=== PATIENT | male | born 1945 | race American Indian/Alaskan Native ===

== ENCOUNTER 2016-11-23 21:54 | Inpatient (IN) | payer MEDICARE ==
[2016-11-23 22:11] LABS: Basophils % (Auto) 0.1 % (0.0-1.8); Eosinophils % (Auto) 0.1 % (0.0-4.3); Hematocrit 47.4 % (35.5-45.6); Hemoglobin 16.3 gm/dl (11.8-15.2); Mean Corpuscular HGB Conc 35 % (32-34); Mean Corpuscular Hemoglobin 30 pg (28-32); Mean Corpuscular Volume 88 fl (84-94); Platelet Count 206 K/mm3 (140-440); Red Blood Count 5.37 M/mm3 (3.65-5.03); White Blood Count 17.7 K/mm3 (4.5-11.0)
[2016-11-23 22:15] LABS: INR 1.07 (0.87-1.13)
[2016-11-23 22:16] LABS: Partial Thromboplastin Time 33.2 Sec. (24.2-36.6)
[2016-11-23 22:19] LABS: Anion Gap 19 mmol/L; BUN/Creatinine Ratio 12.66; Blood Urea Nitrogen 19 mg/dL (9-20); Calcium 9.1 mg/dL (8.4-10.2); Carbon Dioxide 26 mmol/L (22-30); Glucose 190 mg/dL (75-100); Potassium 3.4 mmol/L (3.6-5.0); Sodium 137 mmol/L (137-145)
--- NOTE | 2016-11-23 22:37 | Cat Scan Report ---
FINAL REPORT EXAM: CT HEAD/BRAIN WO CON HISTORY: neuro deficits \T\lt; 6hrs or sx present upon awakening TECHNIQUE: CT head without contrast PRIORS: None. FINDINGS: There is a 0.7 centimeter low-density cyst located within the johny to the left of midline consistent with a remote infarct. There are confluent patchy hypodensity throughout the supratentorial white matter consistent with chronic small vessel ischemic change. There is mild generalized age-related prominence of ventricles and sulci. No acute intra or extra-axial hemorrhage is identified. No evidence for midline shift or mass effect. Bony calvarium is intact. Visualized portion of the paranasal sinuses are unremarkable. IMPRESSION: Remote pontine infarct Chronic small vessel white matter ischemic changes No acute abnormality identified.
--- NOTE | 2016-11-23 22:38 | Emergency Department Report ---
HPI - General Chief Complaint: Neuro Symptoms/Deficit Time Seen by Provider: 11/23/16 22:15 - HPI HPI: Room 1 The patient is a 71-year-old male presenting with a chief complaint of slurred speech and weakness. The patient reportedly was in his usual state of health at 05:00 this morning when the patient's went to work. The patient states she returned home at approximate 14:00 and the patient was eating but she did not notice anything out of the ordinary. At approximately 19:40 she asked the daughter to bring the patient to eat. Family states they noticed that the patient was slow moving and had difficulty lifting his legs. The patient's speech was slightly slurred and after wanted teaspoonfuls patient began vomiting so they called EMS. The patient currently denies complaints family states the patient appears to be back to his baseline. The patient has been compliant with Plavix and aspirin Location: [see above] Duration: [see above] Quality: [see above] Severity: [see above] Modifying factors: [see above] Context: [see above] Mode of transportation: [not driving] ED Past Medical Hx - Past Medical History Hx Hypertension: Yes Hx CVA: Yes (December 2014) Hx Diabetes: Yes - Surgical History Past Surgical History?: No - Family History Family history: no significant - Social History Smoking Status: Never Smoker Substance Use Type: None ED Review of Systems ROS: Stated complaint: STROKE Other details as noted in HPI Comment: All other systems reviewed and negative Constitutional: denies: chills, fever Eyes: denies: eye pain, eye discharge, vision change ENT: denies: ear pain, throat pain Respiratory: denies: cough, shortness of breath, wheezing Cardiovascular: denies: chest pain, palpitations Endocrine: no symptoms reported Gastrointestinal: denies: abdominal pain, nausea, diarrhea Genitourinary: denies: urgency, dysuria Musculoskeletal: denies: back pain, joint swelling, arthralgia Skin: denies: rash, lesions Neurological: weakness, other (dysarthria) Psychiatric: denies: anxiety, depression Hematological/Lymphatic: denies: easy bleeding, easy bruising Physical Exam - Physical Exam Physical Exam: GENERAL: The patient is well-developed well-nourished male lying on stretcher not appearing to be in acute distress. [] HEENT: Normocephalic. Atraumatic. Extraocular motions are intact. Patient has moist mucous membranes. NECK: Supple. No meningitic signs are noted. There is no adenopathy noted. CHEST/LUNGS: Clear to auscultation. There is no respiratory distress noted. HEART/CARDIOVASCULAR: Regular. There is no tachycardia. There is no gallop rub or murmur. ABDOMEN: Abdomen is soft, nontender. Patient has normal bowel sounds. There is no abdominal distention. SKIN: There is no rash. There is no edema. There is no diaphoresis. NEURO: The patient is awake, alert, and oriented. The patient is cooperative. Cranial nerves II through XII grossly intact with exception of asymmetric small slight right facial droop which states is his baseline since his CVA in December 2014. The patient has normal speech. Moves all extremities well. Sensation throughout MUSCULOSKELETAL: There is no evidence of acute injury. ED Course - Consultations Consultation #1: 11/23/16 22:39 Neurology paged 11/23/16 22:47 Case discussed with neurologist Dr. Iyer- no indication for TPA at this time. Recommend admission for TIA workup ED Medical Decision Making - Lab Data Result diagrams: 11/23/16 21:50 11/23/16 21:50 Laboratory Tests 11/23/16 11/23/16 11/23/16 21:50 21:50 21:50 WBC 17.7 H RBC 5.37 H Hgb 16.3 H Hct 47.4 H MCV 88 MCH 30 MCHC 35 H RDW 14.0 Plt Count 206 Lymph % (Auto) 7.5 L [place] % (Auto) 7.8 H Eos % (Auto) 0.1 Baso % (Auto) 0.1 Lymph # 1.3 [place] # 1.4 H Eos # 0.0 Baso # 0.0 Seg Neutrophils % 84.5 H Seg Neutrophils # 15.0 H PT 13.8 INR 1.07 APTT 33.2 Thrombin Time Sodium 137 Potassium 3.4 L Chloride 95.0 L Carbon Dioxide 26 Anion Gap 19 BUN 19 Creatinine 1.5 Estimated GFR 46 BUN/Creatinine Ratio 12.66 Glucose 190 H Calcium 9.1 Troponin T < 0.010 11/23/16 21:50 WBC RBC Hgb Hct MCV MCH MCHC RDW Plt Count Lymph % (Auto) [place] % (Auto) Eos % (Auto) Baso % (Auto) Lymph # [place] # Eos # Baso # Seg Neutrophils % Seg Neutrophils # PT INR APTT Thrombin Time 15.2 Sodium Potassium Chloride Carbon Dioxide Anion Gap BUN Creatinine Estimated GFR BUN/Creatinine Ratio Glucose Calcium Troponin T - EKG Data -: EKG Interpreted by Me EKG shows normal: sinus rhythm Rate: normal - EKG Data When compared to previous EKG there are: previous EKG unavailable - Radiology Data Radiology results: report reviewed (CT head), image reviewed (CT head) CT head (read by radiologist)-no acute disease found - Differential Diagnosis CVA, TIA Critical care attestation.: If time is entered above; I have spent that time in minutes in the direct care of this critically ill patient, excluding procedure time. ED Disposition Clinical Impression: TIA (transient ischemic attack) Disposition: DC-09 OP ADMIT IP TO THIS HOSP Is pt being admited?: Yes Does the pt Need Aspirin: Yes Condition: Fair Time of Disposition: 22:49 (hospitalist paged)
[2016-11-23] MEDS ORDERED: ASPIRIN PO ONE (22:49)
[2016-11-23] MEDS ORDERED: SODIUM CHLORIDE FLUSH SYRINGE 10 ML IV PRN (23:51)
[2016-11-23] MEDS ORDERED: TYLENOL PO PRN (23:51)
[2016-11-23] MEDS ORDERED: MILK OF MAGNESIA PO PRN (23:51)
[2016-11-23] MEDS ORDERED: DULCOLAX PR PRN (23:51)
--- NOTE | 2016-11-23 23:51 | History and Physical Report ---
History of Present Illness Date of examination: 11/23/16 History of present illness: This is a 71-year-old man with a history of hypertension, diabetes, CVA with right-sided weakness comes emergency room today because he felt that his right side was weaker than normal. state that he had nausea and vomiting shortly after dinner Review of systems Constitutional: no fever, no chills, no weight loss Ears, eyes, nose, mouth and throat: no nasal congestion, no nasal discharge, no sinus pressure, no vision change, no red eye. Neck: No neck pain or rigidity. Cardiovascular: chest pain, no orthopnea, no palpitations, no leg swelling Respiratory: No shortness of breath, no cough, no congestion, no wheezing Gastrointestinal: abdominal pain, hematochezia, no nausea, no vomiting Genitourinary : no dysuria, frequency , no hematuria Musculoskeletal: no joint swelling or muscle ache Integumentary: no rash, no pruritis Neurological: no parathesias, change in speech Endocrine: no cold or heat intolerance, no polyuria or polydipsia Hematologic/Lymphatic: no easy bruising, no easy bleeding, no gland swelling Allergic/Immunologic: no urticaria, no angioedema. PAST MEDICAL HISTORY: hypertension, diabetes, CVA PAST SURGICAL HISTORY : None FAMILY HISTORY:Hypertension SOCIAL HISTORY: Denies alcohol, tobacco, drugs Medications and Allergies Allergies Allergy/AdvReac Type Severity Reaction Status Date / Time No Known Allergies Allergy Verified 11/23/16 22:00 Home Medications Medication Instructions Recorded Confirmed Last Taken Type Clonidine 0.1 mg PO DAILY 11/23/16 11/23/16 Unknown History Clopidogrel 75 mg PO DAILY 11/23/16 11/23/16 Unknown History Hydrochlorothiazide 25 mg PO QAM 11/23/16 11/23/16 Unknown History K-Dur 20 mg PO DAILY 11/23/16 11/23/16 Unknown History Levemir Flextouch 30 units SC QAM 11/23/16 11/23/16 Unknown History Lisinopril 40 mg PO QAM 11/23/16 11/23/16 Unknown History Metoprolol Tartrate 50 mg PO QAM 11/23/16 11/23/16 Unknown History NovoLIN 70/30 20 units SC QAM 11/23/16 11/23/16 Unknown History Simvastatin 20 mg PO DAILY 11/23/16 11/23/16 Unknown History Exam - Physical Exam Narrative exam: Gen. appearance: Patient lying in bed, no apparent distress HEENT: Normocephalic, atraumatic, pupils equally round and reactive to light, extraocular movement intact, and no sclericterus,. No JVD or thyromegaly or nodule,neck supple, no carotid bruit ,mucous membranes moist, no exudate or erythema Heart: S1, S2, regular rate and rhythm Lungs: Clear to auscultation bilaterally, breathing comfortable Abdomen: Positive bowel sounds, nontender, nondistended, no organomegaly Extremity: No edema, cyanosis, clubbing Skin: No rash, nodules, warm, dry Neuro: Oriented 3, cranial nerves II-12 intact, speech is fluent, motor - Right side 3/5 and sensory intact - Constitutional Vitals: Temp Pulse Resp BP Pulse Ox 102.6 F H 89 19 169/85 97 11/23/16 22:46 11/23/16 23:11 11/23/16 23:11 11/23/16 23:11 11/23/16 23:11 Results - Labs CBC & Chem 7: 11/23/16 21:50 11/23/16 21:50 Labs: Abnormal lab results 11/23/16 11/23/16 Range/Units 21:50 21:50 WBC 17.7 H (4.5-11.0) K/mm3 RBC 5.37 H (3.65-5.03) M/mm3 Hgb 16.3 H (11.8-15.2) gm/dl Hct 47.4 H (35.5-45.6) % MCHC 35 H (32-34) % Lymph % (Auto) 7.5 L (13.4-35.0) % [place] % (Auto) 7.8 H (0.0-7.3) % [place] # 1.4 H (0.0-0.8) K/mm3 Seg Neutrophils % 84.5 H (40.0-70.0) % Seg Neutrophils # 15.0 H (1.8-7.7) K/mm3 Potassium 3.4 L (3.6-5.0) mmol/L Chloride 95.0 L (98-107) mmol/L Glucose 190 H (75-100) mg/dL - Imaging and Cardiology EKG: image reviewed CT Scan - head: report reviewed Assessment and Plan Assessment Acute CVA SIRS Hypertension Diabetes Plan Admit to medicine Do neurochecks, sunscreen Start plavix, statin, IV hydralazine for blood pressure control Obtain MRI of the head, echo, carotid Doppler Consult neurology, physical and occupational therapy Obtain blood culture, urine culture, chest x-ray, start IV Levaquin Start DVT prophylaxis
[2016-11-24 01:05] LABS: Creatine Kinase MB 1.9 ng/mL (0.0-4.0)
[2016-11-24 01:08] LABS: Creatine Kinase 245 units/L (55-170)
[2016-11-24 01:34] LABS: Bilirubin,Urine NEG (Negative); Blood,Urine MOD (Negative); Ketones,Urine NEG (Negative); Leukocyte Esterase,Urine SM (Negative); Nitrite,Urine NEG (Negative); Urobilinogen,Urine < 2.0 mg/dL (<2.0)
[2016-11-24] MEDS ORDERED: LEVAQUIN 750MG/150ML 750 MG/150 ML BAG IV SCH (01:52)
[2016-11-24] MEDS ORDERED: D50W (25GM) IV PRN (02:51)
[2016-11-24] MEDS: APRESOLINE IV PRN (03:35)
[2016-11-24] MEDS: ZOFRAN IV PRN (05:54)
[2016-11-24 07:03] LABS: Creatine Kinase 228 units/L (55-170); Creatine Kinase MB 1.7 ng/mL (0.0-4.0)
[2016-11-24] MEDS: NOVOLOG SUB-Q SCH ×4 (08:03→22:47)
[2016-11-24] MEDS ORDERED: ASPIRIN PO SCH (10:00)
[2016-11-24] MEDS ORDERED: LOVENOX SUB-Q SCH (10:00)
--- NOTE | 2016-11-24 10:04 | XRay Report ---
AP CHEST: HISTORY: Fever AP view of the chest demonstrates a normal mediastinal and cardiac contour with clear lungs and normal bony and soft tissue structures. IMPRESSION: Unremarkable AP chest.
[2016-11-24] MEDS: PLAVIX PO SCH (12:07)
--- NOTE | 2016-11-24 16:33 | Magnetic Resonance Report ---
FINAL REPORT EXAM: MR BRAIN WO CON HISTORY: stroke TECHNIQUE: MRI brain without contrast PRIORS: Correlated to prior CT head November 23, 2016 FINDINGS: there is focal signal abnormality within the left johny demonstrating increased signal on T2 weighted sequence and decreased signal on T1 weighted sequence. Findings are consistent with a remote left pontine infarct. Increased T2 signal is noted within the supratentorial white matter consistent with chronic small vessel white matter ischemic changes no acute diffusion restriction is identified No evidence for acute intra or extra-axial hemorrhage. Ventricles and sulci are within normal limits. No evidence for mass effect or brain edema pattern. IMPRESSION: Remote left pontine infarct Chronic small vessel white matter ischemic change
--- NOTE | 2016-11-24 17:59 | Progress Note ---
Assessment and Plan Assessment and Plan Assessment Acute CVA SIRS Hypertension Diabetes Plan Admit to medicine Do neurochecks, sunscreen Start plavix, statin, IV hydralazine for blood pressure control Obtain MRI of the head, echo, carotid Doppler Consult neurology, physical and occupational therapy Obtain blood culture, urine culture, chest x-ray, start IV Levaquin Start DVT prophylaxis MRI Remote L Pontine infarct Chronic small vessel white matter ischemic change Subjective Date of service: 11/24/16 Principal diagnosis: Acute CVA Interval history: Improved dramatically Objective - Exam Narrative Exam: Eating by himself - Constitutional Vitals: Vital Signs - 12hr 11/24/16 11/24/16 11/24/16 08:28 08:30 10:00 Temperature 98.7 F Pulse Rate 110 H Respiratory 22 Rate Blood Pressure 130/72 O2 Sat by Pulse 95 98 97 Oximetry 11/24/16 14:00 Temperature 100.0 F H Pulse Rate 96 H Respiratory 20 Rate Blood Pressure 140/76 O2 Sat by Pulse 99 Oximetry General appearance: Present: no acute distress, well-nourished - EENT Eyes: PERRL, EOM intact ENT: hearing intact, clear oral mucosa Ears: bilateral: normal - Neck Neck: supple, normal ROM - Respiratory Respiratory effort: normal Respiratory: bilateral: CTA - Breasts Breasts: normal - Cardiovascular Rhythm: regular Heart Sounds: Present: S1 & S2. Absent: gallop, rub Extremities: pulses intact, No edema, normal color, Full ROM - Gastrointestinal General gastrointestinal: Present: soft, non-tender, non-distended, normal bowel sounds - Genitourinary Male genitourinary: normal - Integumentary Integumentary: clear, warm, dry - Musculoskeletal Musculoskeletal: 1, strength equal bilaterally - Neurologic Neurologic: moves all extremities - Psychiatric Psychiatric: memory intact, appropriate mood/affect, intact judgment & insight - Labs CBC & Chem 7: 11/25/16 05:51 11/25/16 05:51 Labs: Abnormal lab results 11/24/16 11/24/16 11/24/16 Range/Units 00:17 00:44 03:49 POC Glucose (70-105) Total Creatine Kinase 245 H (55-170) units/L HDL Cholesterol 64 H (40-59) mg/dL Urine WBC (Auto) 16.0 H (0.0-6.0) /HPF 11/24/16 11/24/16 11/24/16 Range/Units 04:07 05:54 13:51 POC Glucose 196 H 196 H (70-105) Total Creatine Kinase 228 H (55-170) units/L HDL Cholesterol (40-59) mg/dL Urine WBC (Auto) (0.0-6.0) /HPF 11/24/16 Range/Units 16:38 POC Glucose 164 H (70-105) Total Creatine Kinase (55-170) units/L HDL Cholesterol (40-59) mg/dL Urine WBC (Auto) (0.0-6.0) /HPF
[2016-11-24] MEDS: ZOCOR PO SCH (21:51)
[2016-11-25 06:34] LABS: Hematocrit 43.3 % (35.5-45.6); Hemoglobin 14.9 gm/dl (11.8-15.2); Mean Corpuscular HGB Conc 34 % (32-34); Mean Corpuscular Hemoglobin 30 pg (28-32); Mean Corpuscular Volume 88 fl (84-94); Platelet Count 181 K/mm3 (140-440); Red Blood Count 4.93 M/mm3 (3.65-5.03); Red Cell Distribution Width 14.2 % (13.2-15.2)
[2016-11-25 06:58] LABS: Albumin 3.3 g/dL (3.9-5); Albumin/Globulin Ratio 0.9 %; BUN/Creatinine Ratio 13.5; Bilirubin,Total 1.7 mg/dL (0.1-1.2); Calcium 8.8 mg/dL (8.4-10.2); Chloride 98.4 mmol/L (98-107); Potassium 3.1 mmol/L (3.6-5.0); Total Protein 6.8 g/dL (6.3-8.2)
[2016-11-25] MEDS: NOVOLOG SUB-Q SCH ×4 (07:30→23:00)
[2016-11-25 08:45] LABS: Basophils % (Manual) 0 % (0.0-1.8); Blastocytes % (Manual) 0 %; Eosinophils % (Manual) 0 % (0.0-4.3)
[2016-11-25 08:46] LABS: Anisocytosis Few; Diff Status Complete; Hypersegmented Neutrophils Few; Toxic Vacuolation Rare
[2016-11-25] MEDS: PLAVIX PO SCH (09:55)
[2016-11-25] MEDS: LOVENOX SUB-Q SCH (09:56)
[2016-11-25] MEDS: ZOFRAN IV PRN (13:21)
[2016-11-25] MEDS: APRESOLINE IV PRN (13:23)
--- NOTE | 2016-11-25 17:58 | Discharge Summary ---
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 Primary care physician: ANCELMO TAM MD Hospitalization Condition: Fair Hospital course: See Discharge summary in reports Disposition: DC-01 TO HOME OR SELFCARE Time spent for discharge: 32 minutes Core Measure Documentation - Palliative Care Palliative Care/ Comfort Measures: Not Applicable - Core Measures Any of the following diagnoses?: stroke - Stroke Discharge Requirements Statin for LDL = or >70 mg/dl on DC: Yes Anticoag for atrial fib/atrial flutter: Not Applicable Antithrombotic for ischemic stroke: Yes Exam - Physical Exam Narrative exam: Eating by himself - Constitutional Vitals: Temp Pulse Resp BP Pulse Ox 98.0 F 95 H 20 180/95 100 11/25/16 16:35 11/25/16 16:35 11/25/16 16:35 11/25/16 16:35 11/25/16 16:35 General appearance: Present: no acute distress, well-nourished - EENT Eyes: Present: PERRL ENT: hearing intact, clear oral mucosa - Neck Neck: Present: supple, normal ROM - Respiratory Respiratory effort: normal Respiratory: bilateral: CTA - Cardiovascular Heart Sounds: Present: S1 & S2. Absent: rub, click - Extremities Extremities: pulses symmetrical, No edema Peripheral Pulses: within normal limits - Abdominal General gastrointestinal: Present: soft, non-tender, non-distended, normal bowel sounds Male genitourinary: Present: normal - Integumentary Integumentary: Present: clear, warm, dry - Musculoskeletal Musculoskeletal: gait normal, strength equal bilaterally - Psychiatric Psychiatric: appropriate mood/affect, intact judgment & insight - Neurologic Neurologic: CNII-XII intact, moves all extremities Plan Activity: no restrictions Weight Bearing Status: Full Weight Bearing Diet: low salt Follow up with: PRIMARY CAREMD [Primary Care Provider] - 7 Days
--- NOTE | 2016-11-25 18:11 | Progress Note ---
Assessment and Plan Assessment and Plan Assessment Acute CVA SIRS Hypertension Diabetes Plan Admit to medicine Do neurochecks, sunscreen Start plavix, statin, IV hydralazine for blood pressure control Obtain MRI of the head, echo, carotid Doppler Consult neurology, physical and occupational therapy Obtain blood culture, urine culture, chest x-ray, start IV Levaquin Start DVT prophylaxis MRI Remote L Pontine infarct Chronic small vessel white matter ischemic change - Patient Problems (1) CVA (cerebral vascular accident) Current Visit: Yes Status: Acute Qualifiers: CVA mechanism: thrombosis Precerebral and cerebral artery: vertebral artery Laterality of affected vessel: left Qualified Code(s): 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 (3) IDDM (insulin dependent diabetes mellitus) Current Visit: Yes Status: Chronic Plan to address problem: Cont Insuli-Levemir Novalog and coverage (4) HTN (hypertension) Current Visit: Yes Status: Chronic Qualifiers: Hypertension type: essential hypertension Qualified Code(s): I10 - Essential (primary) hypertension Plan to address problem: Cont Clonidine and Metoprolol (5) HLD (hyperlipidemia) Current Visit: Yes Status: Chronic Qualifiers: Hyperlipidemia type: mixed hyperlipidemia Qualified Code(s): E78.2 - Mixed hyperlipidemia Plan to address problem: cont statins (6) DVT prophylaxis Current Visit: Yes Status: Acute Plan to address problem: Cont Lovenox Subjective Date of service: 11/25/16 Principal diagnosis: Acute CVA Interval history: Improved dramatically Objective - Exam Narrative Exam: Eating by himself - Constitutional Vitals: Vital Signs - 12hr 11/25/16 11/25/16 11/25/16 07:00 10:00 12:00 Temperature 98.2 F 98.0 F Pulse Rate 90 86 Pulse Rate [ 91 H Left Radial] Respiratory 20 20 Rate Blood Pressure 148/88 173/88 O2 Sat by Pulse 98 98 Oximetry 11/25/16 11/25/16 13:51 16:35 Temperature 97.9 F 98.0 F Pulse Rate 86 95 H Pulse Rate [ Left Radial] Respiratory 18 20 Rate Blood Pressure 173/88 180/95 O2 Sat by Pulse 99 100 Oximetry General appearance: Present: no acute distress, well-nourished - EENT Eyes: PERRL, EOM intact ENT: hearing intact, clear oral mucosa Ears: bilateral: normal - Neck Neck: supple, normal ROM - Respiratory Respiratory effort: normal Respiratory: bilateral: CTA - Breasts Breasts: normal - Cardiovascular Rhythm: regular Heart Sounds: Present: S1 & S2. Absent: gallop, rub Extremities: pulses intact, No edema, normal color, Full ROM - Gastrointestinal General gastrointestinal: Present: soft, non-tender, non-distended, normal bowel sounds - Genitourinary Male genitourinary: normal - Integumentary Integumentary: clear, warm, dry - Musculoskeletal Musculoskeletal: 1, strength equal bilaterally - Neurologic Neurologic: moves all extremities - Psychiatric Psychiatric: memory intact, appropriate mood/affect, intact judgment & insight - Labs CBC & Chem 7: 11/25/16 05:51 11/25/16 05:51 Labs: Abnormal lab results 11/24/16 11/25/16 11/25/16 Range/Units 22:02 05:51 05:51 WBC 27.0 H (4.5-11.0) K/mm3 Seg Neuts % (Manual) 82.0 H (40.0-70.0) % Lymphocytes % (Manual) 10.0 L (13.4-35.0) % Monocytes % (Manual) 8.0 H (0.0-7.3) % Seg Neutrophils # Man 22.1 H (1.8-7.7) K/mm3 Monocytes # (Manual) 2.2 H (0.0-0.8) K/mm3 Potassium 3.1 L (3.6-5.0) mmol/L BUN 27 H (9-20) mg/dL Creatinine 2.0 H (0.8-1.5) mg/dL Glucose 140 H (75-100) mg/dL POC Glucose 218 H (70-105) Total Bilirubin 1.70 H (0.1-1.2) mg/dL Albumin 3.3 L (3.9-5) g/dL 11/25/16 11/25/16 11/25/16 Range/Units 06:09 08:30 12:01 WBC (4.5-11.0) K/mm3 Seg Neuts % (Manual) (40.0-70.0) % Lymphocytes % (Manual) (13.4-35.0) % Monocytes % (Manual) (0.0-7.3) % Seg Neutrophils # Man (1.8-7.7) K/mm3 Monocytes # (Manual) (0.0-0.8) K/mm3 Potassium (3.6-5.0) mmol/L BUN (9-20) mg/dL Creatinine (0.8-1.5) mg/dL Glucose (75-100) mg/dL POC Glucose 137 H 127 H 247 H (70-105) Total Bilirubin (0.1-1.2) mg/dL Albumin (3.9-5) g/dL 11/25/16 Range/Units 16:26 WBC (4.5-11.0) K/mm3 Seg Neuts % (Manual) (40.0-70.0) % Lymphocytes % (Manual) (13.4-35.0) % Monocytes % (Manual) (0.0-7.3) % Seg Neutrophils # Man (1.8-7.7) K/mm3 Monocytes # (Manual) (0.0-0.8) K/mm3 Potassium (3.6-5.0) mmol/L BUN (9-20) mg/dL Creatinine (0.8-1.5) mg/dL Glucose (75-100) mg/dL POC Glucose 228 H (70-105) Total Bilirubin (0.1-1.2) mg/dL Albumin (3.9-5) g/dL
[2016-11-25] MEDS ORDERED: K DUR PO SCH (18:15)
[2016-11-25] MEDS ORDERED: NON-FORMULARY (Clonidine 0.1 MG) PO SCH (18:15)
--- NOTE | 2016-11-25 19:14 | Cat Scan Report ---
FINAL REPORT EXAM: CT ABDOMEN PELVIS WO CON HISTORY: nausea/vomiting/elevated WBC TECHNIQUE: Serial axial images through the abdomen and pelvis with coronal and sagittal reconstruction. PRIORS: None. FINDINGS: There is mild atelectasis in the dependent portion of the right lung base. No pleural effusion is seen. Gallbladder appears normal. No focal hepatic lesion is identified. Pancreas appears normal. Spleen appears normal. Adrenal glands appear normal. There is a 12 millimeter left renal cyst. No gross abnormality is seen in the right kidney. Aorta is normal in caliber. The wall the bladder appears slightly thickened. The prostate gland measures approximately 5.8 x 4.2 centimeters in axial dimension. There is a moderate to large amount of stool in the rectal vault. There is a moderate amount of stool in the colon. There is not evidence of bowel obstruction at this time. No free fluid. Appendix is normal in caliber. No acute osseous abnormality is identified. IMPRESSION: 1. 12 millimeter left renal cyst. 2. Moderate to large amount of stool is seen in the rectal vault. Possibility of developing impaction is not excluded. 3. There is not evidence of bowel obstruction at this time. 4. The wall the bladder appears slightly thickened. Possibility of cystitis is not excluded. 5. There is not evidence of appendicitis at this time.
[2016-11-25] MEDS: CATAPRES PO SCH (20:49)
[2016-11-25] MEDS: ROCEPHIN/NS 2 GM/100 ML 2 GM/100 ML BAG IV SCH (20:52)
[2016-11-25] MEDS: ZOCOR PO SCH (23:10)
--- NOTE | 2016-11-26 00:43 | Discharge Summary ---
HISTORY OF PRESENT ILLNESS: The patient has a history of hypertension, diabetes, CVA with right-sided weakness previously, comes in for more right-sided weakness of a few hours duration. The patient was not given TPA in the ER because of him being outside the window of TPA. CT scan was negative. EKG was normal. The patient had a white count of 17,000 and a potassium of 3.4. The patient was admitted for acute CVA, systemic inflammatory response syndrome, hypertension, diabetes. The patient had a neurology stroke workup. The MRI of the brain showed remote left pontine infarct, chronic small vessel white matter ischemic changes. Also, the white count was 27,000 on 11/25/2016, went up from 17,700. The patient had urinary white blood cell count of 16. Discharge summary to be continued at the time of discharge. JOB# [id number] DIOR/GARRY
[2016-11-26] MEDS: CATAPRES PO SCH ×2 (06:34→22:44)
[2016-11-26 07:40] LABS: Basophils % (Auto) 0.2 % (0.0-1.8); Eosinophils % (Auto) 0.4 % (0.0-4.3); Hematocrit 43.1 % (35.5-45.6); Hemoglobin 14.6 gm/dl (11.8-15.2); Mean Corpuscular HGB Conc 34 % (32-34); Mean Corpuscular Hemoglobin 30 pg (28-32); Mean Corpuscular Volume 89 fl (84-94); Platelet Count 178 K/mm3 (140-440); Red Blood Count 4.87 M/mm3 (3.65-5.03); Red Cell Distribution Width 13.8 % (13.2-15.2); White Blood Count 15.6 K/mm3 (4.5-11.0)
[2016-11-26 07:55] LABS: Albumin 3.3 g/dL (3.9-5); Albumin/Globulin Ratio 0.9 %; BUN/Creatinine Ratio 14.21; Bilirubin,Total 0.9 mg/dL (0.1-1.2); Calcium 8.9 mg/dL (8.4-10.2); Total Protein 6.8 g/dL (6.3-8.2)
[2016-11-26 07:56] LABS: Chloride 103.9 mmol/L (98-107); Potassium 3.1 mmol/L (3.6-5.0)
--- NOTE | 2016-11-26 08:42 | Progress Note ---
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 Occupational therapy on board SIRS (systemic inflammatory response syndrome) Elevated WBC but trending down to day's WBC is 15.6 Continue IV antibiotics Rocephin Started on IV fluid We will repeat CBC in the morning Closely monitor patient. Acute kidney injury/vasomotor nephrology Hold lisinopril Renal ultrasound ordered IV fluid hydration Nephrology consulted IDDM (insulin dependent diabetes mellitus) Accu-Chek before meals and at bedtime Sliding scale insulin/NovoLog/ Levemir Consistent carbohydrate diet HTN (hypertension) Continue home antihypertensives pills Clonidine and Metoprolol Closely monitor blood pressure HLD (hyperlipidemia) Continue on home antilipid agents statins DVT prophylaxis Cont Lovenox History Interval history: Patient has an uneventful overnight. Hospitalist Physical - Constitutional Vitals: Temp Pulse Resp BP Pulse Ox 98.3 F 92 H 18 129/87 97 11/26/16 04:00 11/26/16 06:34 11/26/16 04:00 11/26/16 06:34 11/26/16 04:00 General appearance: Present: no acute distress, well-nourished - EENT Eyes: Present: PERRL ENT: hearing intact - Neck Neck: Present: supple - Respiratory Respiratory effort: normal Respiratory: bilateral: CTA - Cardiovascular Rhythm: regular - Extremities Extremities: no ischemia, abnormal (Right extremity weakness.) Peripheral Pulses: within normal limits - Abdominal General gastrointestinal: soft, non-tender - Integumentary Integumentary: Present: clear, warm, dry - Psychiatric Psychiatric: appropriate mood/affect - Neurologic Neurologic: CNII-XII intact - Allied Health Allied health notes reviewed: nursing Results - Labs CBC & Chem 7: 11/27/16 11:13 11/28/16 07:30 Labs: Laboratory Last Values WBC 15.6 K/mm3 (4.5-11.0) H 11/26/16 06:58 RBC 4.87 M/mm3 (3.65-5.03) 11/26/16 06:58 Hgb 14.6 gm/dl (11.8-15.2) 11/26/16 06:58 Hct 43.1 % (35.5-45.6) 11/26/16 06:58 MCV 89 fl (84-94) 11/26/16 06:58 MCH 30 pg (28-32) 11/26/16 06:58 MCHC 34 % (32-34) 11/26/16 06:58 RDW 13.8 % (13.2-15.2) 11/26/16 06:58 Plt Count 178 K/mm3 (140-440) 11/26/16 06:58 Lymph % (Auto) 11.0 % (13.4-35.0) L 11/26/16 06:58 [place] % (Auto) 10.4 % (0.0-7.3) H 11/26/16 06:58 Eos % (Auto) 0.4 % (0.0-4.3) 11/26/16 06:58 Baso % (Auto) 0.2 % (0.0-1.8) 11/26/16 06:58 Lymph # 1.7 K/mm3 (1.2-5.4) 11/26/16 06:58 [place] # 1.6 K/mm3 (0.0-0.8) H 11/26/16 06:58 Eos # 0.1 K/mm3 (0.0-0.4) 11/26/16 06:58 Baso # 0.0 K/mm3 (0.0-0.1) 11/26/16 06:58 Add Manual Diff Complete 11/25/16 05:51 Total Counted 100 11/25/16 05:51 Seg Neutrophils % 78.0 % (40.0-70.0) H 11/26/16 06:58 Seg Neuts % (Manual) 82.0 % (40.0-70.0) H 11/25/16 05:51 Band Neutrophils % 0 % 11/25/16 05:51 Lymphocytes % (Manual) 10.0 % (13.4-35.0) L 11/25/16 05:51 Reactive Lymphs % (Man) 0 % 11/25/16 05:51 Monocytes % (Manual) 8.0 % (0.0-7.3) H 11/25/16 05:51 Eosinophils % (Manual) 0 % (0.0-4.3) 11/25/16 05:51 Basophils % (Manual) 0 % (0.0-1.8) 11/25/16 05:51 Metamyelocytes % 0 % 11/25/16 05:51 Myelocytes % 0 % 11/25/16 05:51 Promyelocytes % 0 % 11/25/16 05:51 Blast Cells % 0 % 11/25/16 05:51 Nucleated RBC % Not Reportable 11/25/16 05:51 Seg Neutrophils # 12.1 K/mm3 (1.8-7.7) H 11/26/16 06:58 Seg Neutrophils # Man 22.1 K/mm3 (1.8-7.7) H 11/25/16 05:51 Band Neutrophils # 0.0 K/mm3 11/25/16 05:51 Lymphocytes # (Manual) 2.7 K/mm3 (1.2-5.4) 11/25/16 05:51 Abs React Lymphs (Man) 0.0 K/mm3 11/25/16 05:51 Monocytes # (Manual) 2.2 K/mm3 (0.0-0.8) H 11/25/16 05:51 Eosinophils # (Manual) 0.0 K/mm3 (0.0-0.4) 11/25/16 05:51 Basophils # (Manual) 0.0 K/mm3 (0.0-0.1) 11/25/16 05:51 Metamyelocytes # 0.0 K/mm3 11/25/16 05:51 Myelocytes # 0.0 K/mm3 11/25/16 05:51 Promyelocytes # 0.0 K/mm3 11/25/16 05:51 Blast Cells # 0.0 K/mm3 11/25/16 05:51 WBC Morphology Not Reportable 11/25/16 05:51 Hypersegmented Neuts Few 11/25/16 05:51 Hyposegmented Neuts Not Reportable 11/25/16 05:51 Hypogranular Neuts Not Reportable 11/25/16 05:51 Smudge Cells Not Reportable 11/25/16 05:51 Toxic Granulation Not Reportable 11/25/16 05:51 Toxic Vacuolation Rare 11/25/16 05:51 Dohle Bodies Not Reportable 11/25/16 05:51 Pelger-Huet Anomaly Not Reportable 11/25/16 05:51 Sara Rods Not Reportable 11/25/16 05:51 Platelet Estimate Appears normal 11/25/16 05:51 Clumped Platelets Not Reportable 11/25/16 05:51 Plt Clumps, EDTA Not Reportable 11/25/16 05:51 Large Platelets Not Reportable 11/25/16 05:51 Giant Platelets Not Reportable 11/25/16 05:51 Platelet Satelliting Not Reportable 11/25/16 05:51 Plt Morphology Comment Not Reportable 11/25/16 05:51 RBC Morphology Not Reportable 11/25/16 05:51 Dimorphic RBCs Not Reportable 11/25/16 05:51 Polychromasia Not Reportable 11/25/16 05:51 Hypochromasia Not Reportable 11/25/16 05:51 Poikilocytosis Not Reportable 11/25/16 05:51 Anisocytosis Few 11/25/16 05:51 Microcytosis Not Reportable 11/25/16 05:51 Macrocytosis Not Reportable 11/25/16 05:51 Spherocytes Not Reportable 11/25/16 05:51 Pappenheimer Bodies Not Reportable 11/25/16 05:51 Sickle Cells Not Reportable 11/25/16 05:51 Target Cells Not Reportable 11/25/16 05:51 Tear Drop Cells Not Reportable 11/25/16 05:51 Ovalocytes Not Reportable 11/25/16 05:51 Helmet Cells Not Reportable 11/25/16 05:51 Swanson-Ettrick Bodies Not Reportable 11/25/16 05:51 [place] Rings Not Reportable 11/25/16 05:51 [place] Cells Not Reportable 11/25/16 05:51 Bite Cells Not Reportable 11/25/16 05:51 Crenated Cell Not Reportable 11/25/16 05:51 Elliptocytes Not Reportable 11/25/16 05:51 Acanthocytes (Spur) Not Reportable 11/25/16 05:51 Rouleaux Not Reportable 11/25/16 05:51 Hemoglobin C Crystals Not Reportable 11/25/16 05:51 Schistocytes Not Reportable 11/25/16 05:51 Malaria parasites Not Reportable 11/25/16 05:51 Roger Bodies Not Reportable 11/25/16 05:51 Hem Pathologist Commnt No 11/25/16 05:51 PT 13.8 Sec. (12.2-14.9) 11/23/16 21:50 INR 1.07 (0.87-1.13) 11/23/16 21:50 APTT 33.2 Sec. (24.2-36.6) 11/23/16 21:50 Thrombin Time 15.2 Sec. (15.1-19.6) 11/23/16 21:50 Sodium 144 mmol/L (137-145) 11/26/16 06:58 Potassium 3.1 mmol/L (3.6-5.0) L 11/26/16 06:58 Chloride 103.9 mmol/L (98-107) 11/26/16 06:58 Carbon Dioxide 24 mmol/L (22-30) 11/26/16 06:58 Anion Gap 19 mmol/L 11/26/16 06:58 BUN 27 mg/dL (9-20) H 11/26/16 06:58 Creatinine 1.9 mg/dL (0.8-1.5) H 11/26/16 06:58 Estimated GFR 43 ml/min 11/26/16 06:58 BUN/Creatinine Ratio 14.21 % 11/26/16 06:58 Glucose 155 mg/dL (75-100) H 11/26/16 06:58 POC Glucose 167 (70-105) H 11/26/16 07:48 Calcium 8.9 mg/dL (8.4-10.2) 11/26/16 06:58 Total Bilirubin 0.90 mg/dL (0.1-1.2) 11/26/16 06:58 AST 22 units/L (5-40) 11/26/16 06:58 ALT 21 units/L (7-56) 11/26/16 06:58 Alkaline Phosphatase 59 units/L (35-129) 11/26/16 06:58 Total Creatine Kinase 228 units/L (55-170) H 11/24/16 04:07 CK-MB (CK-2) 1.7 ng/mL (0.0-4.0) 11/24/16 04:07 CK-MB (CK-2) Rel Index 0.7 (0-4) 11/24/16 04:07 Troponin T < 0.010 ng/mL (0.00-0.029) 11/24/16 04:07 Total Protein 6.8 g/dL (6.3-8.2) 11/26/16 06:58 Albumin 3.3 g/dL (3.9-5) L 11/26/16 06:58 Albumin/Globulin Ratio 0.9 % 11/26/16 06:58 Triglycerides 69 mg/dL (2-149) 11/24/16 03:49 Cholesterol 144 mg/dL (50-199) 11/24/16 03:49 LDL Cholesterol Direct 67 mg/dL (50-130) 11/24/16 03:49 HDL Cholesterol 64 mg/dL (40-59) H 11/24/16 03:49 Cholesterol/HDL Ratio 2.25 % 11/24/16 03:49 Urine Color Yellow (Yellow) 11/24/16 00:44 Urine Turbidity Clear (Clear) 11/24/16 00:44 Urine pH 6.0 (5.0-7.0) 11/24/16 00:44 Ur Specific [place] 1.012 (1.003-1.030) 11/24/16 00:44 Urine Protein 100 mg/dl mg/dL (Negative) 11/24/16 00:44 Urine Glucose (UA) 150 mg/dL (Negative) 11/24/16 00:44 Urine Ketones Neg mg/dL (Negative) 11/24/16 00:44 Urine Blood Mod (Negative) 11/24/16 00:44 Urine Nitrite Neg (Negative) 11/24/16 00:44 Urine Bilirubin Neg (Negative) 11/24/16 00:44 Urine Urobilinogen < 2.0 mg/dL (<2.0) 11/24/16 00:44 Ur Leukocyte Esterase Sm (Negative) 11/24/16 00:44 Urine WBC (Auto) 16.0 /HPF (0.0-6.0) H 11/24/16 00:44 Urine RBC (Auto) 89.0 /HPF (0.0-6.0) 11/24/16 00:44 U Epithel Cells (Auto) < 1.0 /HPF (0-13.0) 11/24/16 00:44 Hyaline Casts 1 /LPF 11/24/16 00:44 <ARJUN LYNN - Last Filed: 11/30/16 17:45> Assessment and Plan Assessment and plan: I saw and evaluated the patient. I agree with the findings and the plan of care as documented in the Nurse Practitioner's~note, with the following corrections and additions. Patient seen and evaluated medical records reviewed along with the nurse practitioner, formulated the plan of care Agree with the per documentation Hospitalist Physical - Constitutional Vitals: Temp Pulse Resp BP Pulse Ox 98.7 F 51 L 18 176/99 96 11/28/16 16:00 11/28/16 16:00 11/28/16 16:00 11/28/16 16:00 11/28/16 16:00 Results - Labs CBC & Chem 7: 11/27/16 11:13 11/28/16 07:30 Labs: Laboratory Last Values WBC 8.4 K/mm3 (4.5-11.0) 11/27/16 11:13 RBC 4.74 M/mm3 (3.65-5.03) 11/27/16 11:13 Hgb 14.6 gm/dl (11.8-15.2) 11/27/16 11:13 Hct 42.0 % (35.5-45.6) 11/27/16 11:13 MCV 89 fl (84-94) 11/27/16 11:13 MCH 31 pg (28-32) 11/27/16 11:13 MCHC 35 % (32-34) H 11/27/16 11:13 RDW 14.1 % (13.2-15.2) 11/27/16 11:13 Plt Count 218 K/mm3 (140-440) 11/27/16 11:13 Lymph % (Auto) 15.8 % (13.4-35.0) 11/27/16 11:13 [place] % (Auto) 14.3 % (0.0-7.3) H 11/27/16 11:13 Eos % (Auto) 2.0 % (0.0-4.3) 11/27/16 11:13 Baso % (Auto) 0.5 % (0.0-1.8) 11/27/16 11:13 Lymph # 1.3 K/mm3 (1.2-5.4) 11/27/16 11:13 [place] # 1.2 K/mm3 (0.0-0.8) H 11/27/16 11:13 Eos # 0.2 K/mm3 (0.0-0.4) 11/27/16 11:13 Baso # 0.0 K/mm3 (0.0-0.1) 11/27/16 11:13 Add Manual Diff Complete 11/25/16 05:51 Total Counted 100 11/25/16 05:51 Seg Neutrophils % 67.4 % (40.0-70.0) 11/27/16 11:13 Seg Neuts % (Manual) 82.0 % (40.0-70.0) H 11/25/16 05:51 Band Neutrophils % 0 % 11/25/16 05:51 Lymphocytes % (Manual) 10.0 % (13.4-35.0) L 11/25/16 05:51 Reactive Lymphs % (Man) 0 % 11/25/16 05:51 Monocytes % (Manual) 8.0 % (0.0-7.3) H 11/25/16 05:51 Eosinophils % (Manual) 0 % (0.0-4.3) 11/25/16 05:51 Basophils % (Manual) 0 % (0.0-1.8) 11/25/16 05:51 Metamyelocytes % 0 % 11/25/16 05:51 Myelocytes % 0 % 11/25/16 05:51 Promyelocytes % 0 % 11/25/16 05:51 Blast Cells % 0 % 11/25/16 05:51 Nucleated RBC % Not Reportable 11/25/16 05:51 Seg Neutrophils # 5.7 K/mm3 (1.8-7.7) 11/27/16 11:13 Seg Neutrophils # Man 22.1 K/mm3 (1.8-7.7) H 11/25/16 05:51 Band Neutrophils # 0.0 K/mm3 11/25/16 05:51 Lymphocytes # (Manual) 2.7 K/mm3 (1.2-5.4) 11/25/16 05:51 Abs React Lymphs (Man) 0.0 K/mm3 11/25/16 05:51 Monocytes # (Manual) 2.2 K/mm3 (0.0-0.8) H 11/25/16 05:51 Eosinophils # (Manual) 0.0 K/mm3 (0.0-0.4) 11/25/16 05:51 Basophils # (Manual) 0.0 K/mm3 (0.0-0.1) 11/25/16 05:51 Metamyelocytes # 0.0 K/mm3 11/25/16 05:51 Myelocytes # 0.0 K/mm3 11/25/16 05:51 Promyelocytes # 0.0 K/mm3 11/25/16 05:51 Blast Cells # 0.0 K/mm3 11/25/16 05:51 WBC Morphology Not Reportable 11/25/16 05:51 Hypersegmented Neuts Few 11/25/16 05:51 Hyposegmented Neuts Not Reportable 11/25/16 05:51 Hypogranular Neuts Not Reportable 11/25/16 05:51 Smudge Cells Not Reportable 11/25/16 05:51 Toxic Granulation Not Reportable 11/25/16 05:51 Toxic Vacuolation Rare 11/25/16 05:51 Dohle Bodies Not Reportable 11/25/16 05:51 Pelger-Huet Anomaly Not Reportable 11/25/16 05:51 Sara Rods Not Reportable 11/25/16 05:51 Platelet Estimate Appears normal 11/25/16 05:51 Clumped Platelets Not Reportable 11/25/16 05:51 Plt Clumps, EDTA Not Reportable 11/25/16 05:51 Large Platelets Not Reportable 11/25/16 05:51 Giant Platelets Not Reportable 11/25/16 05:51 Platelet Satelliting Not Reportable 11/25/16 05:51 Plt Morphology Comment Not Reportable 11/25/16 05:51 RBC Morphology Not Reportable 11/25/16 05:51 Dimorphic RBCs Not Reportable 11/25/16 05:51 Polychromasia Not Reportable 11/25/16 05:51 Hypochromasia Not Reportable 11/25/16 05:51 Poikilocytosis Not Reportable 11/25/16 05:51 Anisocytosis Few 11/25/16 05:51 Microcytosis Not Reportable 11/25/16 05:51 Macrocytosis Not Reportable 11/25/16 05:51 Spherocytes Not Reportable 11/25/16 05:51 Pappenheimer Bodies Not Reportable 11/25/16 05:51 Sickle Cells Not Reportable 11/25/16 05:51 Target Cells Not Reportable 11/25/16 05:51 Tear Drop Cells Not Reportable 11/25/16 05:51 Ovalocytes Not Reportable 11/25/16 05:51 Helmet Cells Not Reportable 11/25/16 05:51 Swanson-Ettrick Bodies Not Reportable 11/25/16 05:51 [place] Rings Not Reportable 11/25/16 05:51 [place] Cells Not Reportable 11/25/16 05:51 Bite Cells Not Reportable 11/25/16 05:51 Crenated Cell Not Reportable 11/25/16 05:51 Elliptocytes Not Reportable 11/25/16 05:51 Acanthocytes (Spur) Not Reportable 11/25/16 05:51 Rouleaux Not Reportable 11/25/16 05:51 Hemoglobin C Crystals Not Reportable 11/25/16 05:51 Schistocytes Not Reportable 11/25/16 05:51 Malaria parasites Not Reportable 11/25/16 05:51 Roger Bodies Not Reportable 11/25/16 05:51 Hem Pathologist Commnt No 11/25/16 05:51 PT 13.8 Sec. (12.2-14.9) 11/23/16 21:50 INR 1.07 (0.87-1.13) 11/23/16 21:50 APTT 33.2 Sec. (24.2-36.6) 11/23/16 21:50 Thrombin Time 15.2 Sec. (15.1-19.6) 11/23/16 21:50 Sodium 142 mmol/L (137-145) 11/28/16 07:30 Potassium 3.3 mmol/L (3.6-5.0) L 11/28/16 07:30 Chloride 103.8 mmol/L (98-107) 11/28/16 07:30 Carbon Dioxide 23 mmol/L (22-30) 11/28/16 07:30 Anion Gap 19 mmol/L 11/28/16 07:30 BUN 26 mg/dL (9-20) H 11/28/16 07:30 Creatinine 1.8 mg/dL (0.8-1.5) H 11/28/16 07:30 Estimated GFR 45 ml/min 11/28/16 07:30 BUN/Creatinine Ratio 14.44 % 11/28/16 07:30 Glucose 99 mg/dL (75-100) 11/28/16 07:30 POC Glucose 122 (70-105) H 11/28/16 17:16 Calcium 8.7 mg/dL (8.4-10.2) 11/28/16 07:30 Magnesium 1.80 mg/dL (1.7-2.3) 11/28/16 07:30 Total Bilirubin 0.60 mg/dL (0.1-1.2) 11/27/16 11:13 AST 23 units/L (5-40) 11/27/16 11:13 ALT 23 units/L (7-56) 11/27/16 11:13 Alkaline Phosphatase 55 units/L (35-129) 11/27/16 11:13 Total Creatine Kinase 228 units/L (55-170) H 11/24/16 04:07 CK-MB (CK-2) 1.7 ng/mL (0.0-4.0) 11/24/16 04:07 CK-MB (CK-2) Rel Index 0.7 (0-4) 11/24/16 04:07 Troponin T < 0.010 ng/mL (0.00-0.029) 11/24/16 04:07 Total Protein 6.6 g/dL (6.3-8.2) 11/27/16 11:13 Albumin 3.2 g/dL (3.9-5) L 11/27/16 11:13 Albumin/Globulin Ratio 0.9 % 11/27/16 11:13 Triglycerides 69 mg/dL (2-149) 11/24/16 03:49 Cholesterol 144 mg/dL (50-199) 11/24/16 03:49 LDL Cholesterol Direct 67 mg/dL (50-130) 11/24/16 03:49 HDL Cholesterol 64 mg/dL (40-59) H 11/24/16 03:49 Cholesterol/HDL Ratio 2.25 % 11/24/16 03:49 Urine Color Yellow (Yellow) 11/24/16 00:44 Urine Turbidity Clear (Clear) 11/24/16 00:44 Urine pH 6.0 (5.0-7.0) 11/24/16 00:44 Ur Specific [place] 1.012 (1.003-1.030) 11/24/16 00:44 Urine Protein 100 mg/dl mg/dL (Negative) 11/24/16 00:44 Urine Glucose (UA) 150 mg/dL (Negative) 11/24/16 00:44 Urine Ketones Neg mg/dL (Negative) 11/24/16 00:44 Urine Blood Mod (Negative) 11/24/16 00:44 Urine Nitrite Neg (Negative) 11/24/16 00:44 Urine Bilirubin Neg (Negative) 11/24/16 00:44 Urine Urobilinogen < 2.0 mg/dL (<2.0) 11/24/16 00:44 Ur Leukocyte Esterase Sm (Negative) 11/24/16 00:44 Urine WBC (Auto) 16.0 /HPF (0.0-6.0) H 11/24/16 00:44 Urine RBC (Auto) 89.0 /HPF (0.0-6.0) 11/24/16 00:44 U Epithel Cells (Auto) < 1.0 /HPF (0-13.0) 11/24/16 00:44 Hyaline Casts 1 /LPF 11/24/16 00:44
[2016-11-26] MEDS ORDERED: K-DUR PO ONE ×2 (08:47→11:00)
[2016-11-26] MEDS ORDERED: ZOCOR PO SCH (10:00)
[2016-11-26] MEDS ORDERED: HCTZ PO SCH (10:00)
[2016-11-26] MEDS ORDERED: NOVOLIN SC SCH (10:00)
[2016-11-26] MEDS ORDERED: NON-FORMULARY (Hydrochlorothiazide 25 MG) PO SCH (10:00)
[2016-11-26] MEDS ORDERED: LEVAQUIN 750MG/150ML 750 MG/150 ML BAG IV SCH (10:00)
[2016-11-26] MEDS ORDERED: NON-FORMULARY (Simvastatin 20 MG) PO SCH (10:00)
[2016-11-26] MEDS ORDERED: LOPRESSOR PO SCH (10:00)
[2016-11-26] MEDS ORDERED: NON-FORMULARY (Metoprolol Tartrate 50 MG) PO SCH (10:00)
[2016-11-26] MEDS ORDERED: LEVEMIR 30 UNIT SC SCH (10:00)
[2016-11-26] MEDS: NOVOLOG SUB-Q SCH ×4 (10:03→22:45)
[2016-11-26] MEDS: PLAVIX PO SCH (10:07)
[2016-11-26] MEDS: LOVENOX SUB-Q SCH (10:08)
[2016-11-26] MEDS: ROCEPHIN/NS 2 GM/100 ML 2 GM/100 ML BAG IV SCH (10:08)
[2016-11-26] MEDS: LEVEMIR SUB-Q SCH (10:09)
--- NOTE | 2016-11-26 10:30 | Consultation ---
History of Present Illness - Reason for Consult Consult date: 11/26/16 acute renal failure, chronic renal failure - History of Present Illness The patient is a 71-year AAM with a history of Hypertension, Type 2 Diabetes and CVA with residual right-sided weakness came to the ER complaining right sided weakness. He felt the right side was weaker than usual. Patient is a poor historian. Associated symptoms include slurred speech and vomiting. His symptoms have improved at this time. His creatinine increased to 2 from 1.5 on admission. No prior creatinine value is available. Patient denies any prior kidney problem. Past History Past Medical History: diabetes, hypertension, stroke Medications and Allergies Allergies Allergy/AdvReac Type Severity Reaction Status Date / Time No Known Allergies Allergy Verified 11/23/16 22:00 Home Medications Medication Instructions Recorded Confirmed Last Taken Type Clonidine 0.1 mg PO DAILY 11/23/16 11/23/16 Unknown History Clopidogrel 75 mg PO DAILY 11/23/16 11/23/16 Unknown History Hydrochlorothiazide 25 mg PO QAM 11/23/16 11/23/16 Unknown History K-Dur 20 mg PO DAILY 11/23/16 11/23/16 Unknown History Levemir Flextouch 30 units SC QA 11/23/16 11/23/16 Unknown History Lisinopril 40 mg PO QAM 11/23/16 11/23/16 Unknown History Metoprolol Tartrate 50 mg PO QAM 11/23/16 11/23/16 Unknown History NovoLIN 70/30 20 units SC QAM 11/23/16 11/23/16 Unknown History Simvastatin 20 mg PO DAILY 11/23/16 11/23/16 Unknown History Active Meds: Active Medications Acetaminophen (Tylenol) 650 mg PO Q4H PRN PRN Reason: Pain, Mild (1-3) Last Admin: 11/24/16 17:10 Dose: 650 mg Bisacodyl (Dulcolax) 10 mg OK QDAY PRN PRN Reason: Constipation Clonidine HCl (Catapres) 0.1 mg PO Q12H [facility] Last Admin: 11/26/16 06:34 Dose: 0.1 mg Clopidogrel Bisulfate (Plavix) 75 mg PO DAILY [facility] Last Admin: 11/26/16 10:07 Dose: 75 mg Dextrose (D50w (25gm)) 50 ml IV PRN PRN PRN Reason: Hypoglycemia Enoxaparin Sodium (Lovenox) 40 mg SUB-Q QDAY@1000 KINJAL Last Admin: 11/26/16 10:08 Dose: 40 mg Hydralazine HCl (Apresoline) 5 mg IV Q6H PRN PRN Reason: Hypertension Last Admin: 11/25/16 13:23 Dose: 5 mg Hydrochlorothiazide (Hctz) 25 mg PO QAM [facility] Last Admin: 11/26/16 10:07 Dose: 25 mg Levofloxacin/Dextrose (Levaquin 750mg/150ml) 750 mg in 150 mls @ 100 mls/hr IV Q48HR [facility] PRN Reason: Protocol Last Admin: 11/26/16 10:08 Dose: 100 mls/hr Ceftriaxone Sodium (Rocephin/Ns 2 Gm/100 Ml) 2 gm in 100 mls @ 200 mls/hr IV Q24HR [facility] PRN Reason: Protocol Last Admin: 11/26/16 10:08 Dose: 200 mls/hr Sodium Chloride (Nacl 0.9% 1000 Ml) 1,000 mls @ 100 mls/hr IV DIRECT KINJAL Insulin Aspart (Novolog) 0 units SUB-Q ACHS [facility] PRN Reason: Protocol Last Admin: 11/26/16 10:03 Dose: 3 units Insulin Detemir (Levemir) [facility] Last Admin: 11/26/16 10:09 Dose: 30 units Insulin Human Isoph/Insulin Regular (Novolin 70/30) 20 unit SUB-Q QAM [facility] Last Admin: 11/26/16 10:09 Dose: 20 unit Magnesium Hydroxide (Milk Of Magnesia) 30 ml PO Q4H PRN PRN Reason: Constipation Metoprolol Tartrate (Lopressor) 50 mg PO QAM [facility] Last Admin: 11/26/16 10:07 Dose: 50 mg Ondansetron HCl (Zofran) 4 mg IV Q8H PRN PRN Reason: N/V unrelieved by Angélica Last Admin: 11/25/16 13:21 Dose: 4 mg Potassium Chloride (K-Dur) 10 meq PO QDAY KINJAL Simvastatin (Zocor) 20 mg PO QHS [facility] Last Admin: 11/25/16 23:10 Dose: 20 mg Sodium Chloride (Sodium Chloride Flush Syringe 10 Ml) 10 ml IV PRN PRN PRN Reason: LINE FLUSH Review of Systems Constitutional: weakness, no weight loss, no weight gain, no fever, no chills, no anorexia Ears, nose, mouth and throat: no sinus pressure, no sinus pain, no epistaxis Cardiovascular: high blood pressure, no chest pain, no edema, no syncope, no lightheadedness, no shortness of breath, no leg edema Respiratory: no cough, no shortness of breath, no dyspnea on exertion Gastrointestinal: nausea, vomiting, no abdominal pain, no diarrhea, no melena Genitourinary Male: no dysuria, no hematuria, no kidney stones Rectal: no bleeding Musculoskeletal: no hot joints Integumentary: no rash, no wounds, no jaundice Neurological: paralysis, weakness, no head injury, no syncope Psychiatric: no disorientation Endocrine: no weight change Hematologic/Lymphatic: no easy bleeding Exam - Vital Signs Vital signs: Vital Signs Resp 26 H 11/23/16 22:20 - General Appearance General appearance: well-developed, well-nourished, appears stated age, other ( no distress) EENT: ATNC, PERRL, mucous membranes moist, hearing intact, vision intact Neck: Present: neck supple Respiratory: Clear to Ascultation Heart: regular, S1S2, no murmurs Gastrointestinal: Present: normoactive bowel sounds. Absent: tenderness, distended Integumentary: no rash Neurologic: no asterixis, CN 3-12 intact, other (minimal right sided weakness noted) Musculoskeletal: Present: other (no edema) Psychiatric: cooperative Results - Lab Results 11/26/16 06:58 11/27/16 06:58 Most recent lab results Calcium 8.9 mg/dL (8.4-10.2) 11/26/16 06:58 Assessment and Plan - Patient Problems (1) HIWTO (acute kidney injury) Current Visit: Yes Status: Acute Plan to address problem: HIWOT is likely hemodynamically mediated. Patient is on IV fluids. CT abdomen results noted. Monitor renal function. (2) Hypokalemia Current Visit: Yes Status: Acute Plan to address problem: Replete K. (3) HTN (hypertension) Current Visit: Yes Status: Suspected Qualifiers: Hypertension type: essential hypertension Qualified Code(s): I10 - Essential (primary) hypertension Plan to address problem: Monitor BP. 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
[2016-11-26] MEDS: NACL 0.9% 1000 ML 1,000 ML IV SCH ×2 (11:37→22:54)
[2016-11-26] MEDS: K-DUR PO SCH (17:59)
[2016-11-26] MEDS: ZOCOR PO SCH (22:42)
[2016-11-26] MEDS: LOPRESSOR PO SCH (22:43)
[2016-11-27] MEDS: APRESOLINE IV PRN (06:19)
[2016-11-27] MEDS: ZOFRAN IV PRN (06:20)
[2016-11-27 07:30] LABS: BUN/Creatinine Ratio 15.62; Calcium 8.8 mg/dL (8.4-10.2)
[2016-11-27 07:31] LABS: Chloride 105.9 mmol/L (98-107); Potassium 3.4 mmol/L (3.6-5.0)
--- NOTE | 2016-11-27 07:59 | Progress Note ---
<CLEM AGUILAR - Last Filed: 11/27/16 12:12> Assessment and Plan Assessment and plan: ASSESSMENT/PLAN CVA (cerebral vascular accident) Left Remote pontine infarct .Power 5/5 in all 4 extremities Physical therapy on board. Occupational therapy on board Patient awaiting for acute rehabilitation placement. SIRS (systemic inflammatory response syndrome) Resolved Continue IV antibiotics Rocephin Started on IV fluid We will repeat CBC in the morning Closely monitor patient. Acute kidney injury/vasomotor nephrology Hold lisinopril IV fluid hydration Nephrology consulted IDDM (insulin dependent diabetes mellitus) Accu-Chek before meals and at bedtime Sliding scale insulin/NovoLog/ Levemir Consistent carbohydrate diet HTN (hypertension) Continue home antihypertensives pills Clonidine and Metoprolol Closely monitor blood pressure HLD (hyperlipidemia) Continue on home antilipid agents statins DVT prophylaxis Cont Lovenox History Interval history: Patient alert and oriented to person, place and time. Hospitalist Physical - Constitutional Vitals: Temp Pulse Resp BP Pulse Ox 98.1 F 74 20 200/121 100 11/27/16 05:54 11/27/16 06:19 11/27/16 05:54 11/27/16 06:19 11/27/16 05:54 General appearance: Present: no acute distress, well-nourished - EENT Eyes: Present: PERRL ENT: hearing intact - Neck Neck: Present: supple - Respiratory Respiratory effort: normal Respiratory: bilateral: CTA - Cardiovascular Rhythm: regular Heart Sounds: Present: S1 & S2 - Extremities Extremities: no ischemia Peripheral Pulses: within normal limits - Integumentary Integumentary: Present: clear, warm, dry - Psychiatric Psychiatric: appropriate mood/affect - Allied Health Allied health notes reviewed: nursing Results - Labs CBC & Chem 7: 11/27/16 11:13 11/27/16 06:58 Labs: Laboratory Last Values WBC 15.6 K/mm3 (4.5-11.0) H 11/26/16 06:58 RBC 4.87 M/mm3 (3.65-5.03) 11/26/16 06:58 Hgb 14.6 gm/dl (11.8-15.2) 11/26/16 06:58 Hct 43.1 % (35.5-45.6) 11/26/16 06:58 MCV 89 fl (84-94) 11/26/16 06:58 MCH 30 pg (28-32) 11/26/16 06:58 MCHC 34 % (32-34) 11/26/16 06:58 RDW 13.8 % (13.2-15.2) 11/26/16 06:58 Plt Count 178 K/mm3 (140-440) 11/26/16 06:58 Lymph % (Auto) 11.0 % (13.4-35.0) L 11/26/16 06:58 Bell % (Auto) 10.4 % (0.0-7.3) H 11/26/16 06:58 Eos % (Auto) 0.4 % (0.0-4.3) 11/26/16 06:58 Baso % (Auto) 0.2 % (0.0-1.8) 11/26/16 06:58 Lymph # 1.7 K/mm3 (1.2-5.4) 11/26/16 06:58 Bell # 1.6 K/mm3 (0.0-0.8) H 11/26/16 06:58 Eos # 0.1 K/mm3 (0.0-0.4) 11/26/16 06:58 Baso # 0.0 K/mm3 (0.0-0.1) 11/26/16 06:58 Add Manual Diff Complete 11/25/16 05:51 Total Counted 100 11/25/16 05:51 Seg Neutrophils % 78.0 % (40.0-70.0) H 11/26/16 06:58 Seg Neuts % (Manual) 82.0 % (40.0-70.0) H 11/25/16 05:51 Band Neutrophils % 0 % 11/25/16 05:51 Lymphocytes % (Manual) 10.0 % (13.4-35.0) L 11/25/16 05:51 Reactive Lymphs % (Man) 0 % 11/25/16 05:51 Monocytes % (Manual) 8.0 % (0.0-7.3) H 11/25/16 05:51 Eosinophils % (Manual) 0 % (0.0-4.3) 11/25/16 05:51 Basophils % (Manual) 0 % (0.0-1.8) 11/25/16 05:51 Metamyelocytes % 0 % 11/25/16 05:51 Myelocytes % 0 % 11/25/16 05:51 Promyelocytes % 0 % 11/25/16 05:51 Blast Cells % 0 % 11/25/16 05:51 Nucleated RBC % Not Reportable 11/25/16 05:51 Seg Neutrophils # 12.1 K/mm3 (1.8-7.7) H 11/26/16 06:58 Seg Neutrophils # Man 22.1 K/mm3 (1.8-7.7) H 11/25/16 05:51 Band Neutrophils # 0.0 K/mm3 11/25/16 05:51 Lymphocytes # (Manual) 2.7 K/mm3 (1.2-5.4) 11/25/16 05:51 Abs React Lymphs (Man) 0.0 K/mm3 11/25/16 05:51 Monocytes # (Manual) 2.2 K/mm3 (0.0-0.8) H 11/25/16 05:51 Eosinophils # (Manual) 0.0 K/mm3 (0.0-0.4) 11/25/16 05:51 Basophils # (Manual) 0.0 K/mm3 (0.0-0.1) 11/25/16 05:51 Metamyelocytes # 0.0 K/mm3 11/25/16 05:51 Myelocytes # 0.0 K/mm3 11/25/16 05:51 Promyelocytes # 0.0 K/mm3 11/25/16 05:51 Blast Cells # 0.0 K/mm3 11/25/16 05:51 WBC Morphology Not Reportable 11/25/16 05:51 Hypersegmented Neuts Few 11/25/16 05:51 Hyposegmented Neuts Not Reportable 11/25/16 05:51 Hypogranular Neuts Not Reportable 11/25/16 05:51 Smudge Cells Not Reportable 11/25/16 05:51 Toxic Granulation Not Reportable 11/25/16 05:51 Toxic Vacuolation Rare 11/25/16 05:51 Dohle Bodies Not Reportable 11/25/16 05:51 Pelger-Huet Anomaly Not Reportable 11/25/16 05:51 Sara Rods Not Reportable 11/25/16 05:51 Platelet Estimate Appears normal 11/25/16 05:51 Clumped Platelets Not Reportable 11/25/16 05:51 Plt Clumps, EDTA Not Reportable 11/25/16 05:51 Large Platelets Not Reportable 11/25/16 05:51 Giant Platelets Not Reportable 11/25/16 05:51 Platelet Satelliting Not Reportable 11/25/16 05:51 Plt Morphology Comment Not Reportable 11/25/16 05:51 RBC Morphology Not Reportable 11/25/16 05:51 Dimorphic RBCs Not Reportable 11/25/16 05:51 Polychromasia Not Reportable 11/25/16 05:51 Hypochromasia Not Reportable 11/25/16 05:51 Poikilocytosis Not Reportable 11/25/16 05:51 Anisocytosis Few 11/25/16 05:51 Microcytosis Not Reportable 11/25/16 05:51 Macrocytosis Not Reportable 11/25/16 05:51 Spherocytes Not Reportable 11/25/16 05:51 Pappenheimer Bodies Not Reportable 11/25/16 05:51 Sickle Cells Not Reportable 11/25/16 05:51 Target Cells Not Reportable 11/25/16 05:51 Tear Drop Cells Not Reportable 11/25/16 05:51 Ovalocytes Not Reportable 11/25/16 05:51 Helmet Cells Not Reportable 11/25/16 05:51 Swanson-Ethete Bodies Not Reportable 11/25/16 05:51 [place] Rings Not Reportable 11/25/16 05:51 Silvano Cells Not Reportable 11/25/16 05:51 Bite Cells Not Reportable 11/25/16 05:51 Crenated Cell Not Reportable 11/25/16 05:51 Elliptocytes Not Reportable 11/25/16 05:51 Acanthocytes (Spur) Not Reportable 11/25/16 05:51 Rouleaux Not Reportable 11/25/16 05:51 Hemoglobin C Crystals Not Reportable 11/25/16 05:51 Schistocytes Not Reportable 11/25/16 05:51 Malaria parasites Not Reportable 11/25/16 05:51 Roger Bodies Not Reportable 11/25/16 05:51 Hem Pathologist Commnt No 11/25/16 05:51 PT 13.8 Sec. (12.2-14.9) 11/23/16 21:50 INR 1.07 (0.87-1.13) 11/23/16 21:50 APTT 33.2 Sec. (24.2-36.6) 11/23/16 21:50 Thrombin Time 15.2 Sec. (15.1-19.6) 11/23/16 21:50 Sodium 143 mmol/L (137-145) 11/27/16 06:58 Potassium 3.4 mmol/L (3.6-5.0) L 11/27/16 06:58 Chloride 105.9 mmol/L (98-107) 11/27/16 06:58 Carbon Dioxide 20 mmol/L (22-30) L 11/27/16 06:58 Anion Gap 21 mmol/L 11/27/16 06:58 BUN 25 mg/dL (9-20) H 11/27/16 06:58 Creatinine 1.6 mg/dL (0.8-1.5) H 11/27/16 06:58 Estimated GFR 52 ml/min 11/27/16 06:58 BUN/Creatinine Ratio 15.62 % 11/27/16 06:58 Glucose 147 mg/dL (75-100) H 11/27/16 06:58 POC Glucose 115 (70-105) H 11/26/16 21:59 Calcium 8.8 mg/dL (8.4-10.2) 11/27/16 06:58 Total Bilirubin 0.90 mg/dL (0.1-1.2) 11/26/16 06:58 AST 22 units/L (5-40) 11/26/16 06:58 ALT 21 units/L (7-56) 11/26/16 06:58 Alkaline Phosphatase 59 units/L (35-129) 11/26/16 06:58 Total Creatine Kinase 228 units/L (55-170) H 11/24/16 04:07 CK-MB (CK-2) 1.7 ng/mL (0.0-4.0) 11/24/16 04:07 CK-MB (CK-2) Rel Index 0.7 (0-4) 11/24/16 04:07 Troponin T < 0.010 ng/mL (0.00-0.029) 11/24/16 04:07 Total Protein 6.8 g/dL (6.3-8.2) 11/26/16 06:58 Albumin 3.3 g/dL (3.9-5) L 11/26/16 06:58 Albumin/Globulin Ratio 0.9 % 11/26/16 06:58 Triglycerides 69 mg/dL (2-149) 11/24/16 03:49 Cholesterol 144 mg/dL (50-199) 11/24/16 03:49 LDL Cholesterol Direct 67 mg/dL (50-130) 11/24/16 03:49 HDL Cholesterol 64 mg/dL (40-59) H 11/24/16 03:49 Cholesterol/HDL Ratio 2.25 % 11/24/16 03:49 Urine Color Yellow (Yellow) 11/24/16 00:44 Urine Turbidity Clear (Clear) 11/24/16 00:44 Urine pH 6.0 (5.0-7.0) 11/24/16 00:44 Ur Specific [place] 1.012 (1.003-1.030) 11/24/16 00:44 Urine Protein 100 mg/dl mg/dL (Negative) 11/24/16 00:44 Urine Glucose (UA) 150 mg/dL (Negative) 11/24/16 00:44 Urine Ketones Neg mg/dL (Negative) 11/24/16 00:44 Urine Blood Mod (Negative) 11/24/16 00:44 Urine Nitrite Neg (Negative) 11/24/16 00:44 Urine Bilirubin Neg (Negative) 11/24/16 00:44 Urine Urobilinogen < 2.0 mg/dL (<2.0) 11/24/16 00:44 Ur Leukocyte Esterase Sm (Negative) 11/24/16 00:44 Urine WBC (Auto) 16.0 /HPF (0.0-6.0) H 11/24/16 00:44 Urine RBC (Auto) 89.0 /HPF (0.0-6.0) 11/24/16 00:44 U Epithel Cells (Auto) < 1.0 /HPF (0-13.0) 11/24/16 00:44 Hyaline Casts 1 /LPF 11/24/16 00:44 <ARJUN LYNN - Last Filed: 11/27/16 19:15> Assessment and Plan Assessment and plan: I saw and evaluated the patient. I agree with the findings and the plan of care as documented in the Nurse Practitioner's~note, with the following corrections and additions. Patient seen and evaluated medical records reviewed Agree with the above documentation and plan of care Assessment and plan; --Acute CVA; not a candidate for TPA Continue current neuro workup, antiplatelets and statins Physical therapy occupational therapy and rehabilitation --Hypertension; moderate control Continue current antihypertensives when necessary medications --dyslipidemia; continue lipid-lowering medications --hypokalemia; replace per protocol and monitor levels --Type 2 diabetes mellitus; Accu-Chek sliding scale coverage and ADA diet and insulin --DVT prophylaxis with Lovenox Physical therapy occupational therapy rehabilitation Plan of care discussed with the patient as well as his nurse Hospitalist Physical - Constitutional Vitals: Temp Pulse Resp BP Pulse Ox 98.2 F 64 18 174/86 95 11/27/16 16:41 11/27/16 16:41 11/27/16 16:41 11/27/16 16:41 11/27/16 16:41 Results - Labs CBC & Chem 7: 11/27/16 11:13 11/27/16 11:13 Labs: Laboratory Last Values WBC 8.4 K/mm3 (4.5-11.0) 11/27/16 11:13 RBC 4.74 M/mm3 (3.65-5.03) 11/27/16 11:13 Hgb 14.6 gm/dl (11.8-15.2) 11/27/16 11:13 Hct 42.0 % (35.5-45.6) 11/27/16 11:13 MCV 89 fl (84-94) 11/27/16 11:13 MCH 31 pg (28-32) 11/27/16 11:13 MCHC 35 % (32-34) H 11/27/16 11:13 RDW 14.1 % (13.2-15.2) 11/27/16 11:13 Plt Count 218 K/mm3 (140-440) 11/27/16 11:13 Lymph % (Auto) 15.8 % (13.4-35.0) 11/27/16 11:13 Bell % (Auto) 14.3 % (0.0-7.3) H 11/27/16 11:13 Eos % (Auto) 2.0 % (0.0-4.3) 11/27/16 11:13 Baso % (Auto) 0.5 % (0.0-1.8) 11/27/16 11:13 Lymph # 1.3 K/mm3 (1.2-5.4) 11/27/16 11:13 Bell # 1.2 K/mm3 (0.0-0.8) H 11/27/16 11:13 Eos # 0.2 K/mm3 (0.0-0.4) 11/27/16 11:13 Baso # 0.0 K/mm3 (0.0-0.1) 11/27/16 11:13 Add Manual Diff Complete 11/25/16 05:51 Total Counted 100 11/25/16 05:51 Seg Neutrophils % 67.4 % (40.0-70.0) 11/27/16 11:13 Seg Neuts % (Manual) 82.0 % (40.0-70.0) H 11/25/16 05:51 Band Neutrophils % 0 % 11/25/16 05:51 Lymphocytes % (Manual) 10.0 % (13.4-35.0) L 11/25/16 05:51 Reactive Lymphs % (Man) 0 % 11/25/16 05:51 Monocytes % (Manual) 8.0 % (0.0-7.3) H 11/25/16 05:51 Eosinophils % (Manual) 0 % (0.0-4.3) 11/25/16 05:51 Basophils % (Manual) 0 % (0.0-1.8) 11/25/16 05:51 Metamyelocytes % 0 % 11/25/16 05:51 Myelocytes % 0 % 11/25/16 05:51 Promyelocytes % 0 % 11/25/16 05:51 Blast Cells % 0 % 11/25/16 05:51 Nucleated RBC % Not Reportable 11/25/16 05:51 Seg Neutrophils # 5.7 K/mm3 (1.8-7.7) 11/27/16 11:13 Seg Neutrophils # Man 22.1 K/mm3 (1.8-7.7) H 11/25/16 05:51 Band Neutrophils # 0.0 K/mm3 11/25/16 05:51 Lymphocytes # (Manual) 2.7 K/mm3 (1.2-5.4) 11/25/16 05:51 Abs React Lymphs (Man) 0.0 K/mm3 11/25/16 05:51 Monocytes # (Manual) 2.2 K/mm3 (0.0-0.8) H 11/25/16 05:51 Eosinophils # (Manual) 0.0 K/mm3 (0.0-0.4) 11/25/16 05:51 Basophils # (Manual) 0.0 K/mm3 (0.0-0.1) 11/25/16 05:51 Metamyelocytes # 0.0 K/mm3 11/25/16 05:51 Myelocytes # 0.0 K/mm3 11/25/16 05:51 Promyelocytes # 0.0 K/mm3 11/25/16 05:51 Blast Cells # 0.0 K/mm3 11/25/16 05:51 WBC Morphology Not Reportable 11/25/16 05:51 Hypersegmented Neuts Few 11/25/16 05:51 Hyposegmented Neuts Not Reportable 11/25/16 05:51 Hypogranular Neuts Not Reportable 11/25/16 05:51 Smudge Cells Not Reportable 11/25/16 05:51 Toxic Granulation Not Reportable 11/25/16 05:51 Toxic Vacuolation Rare 11/25/16 05:51 Dohle Bodies Not Reportable 11/25/16 05:51 Pelger-Huet Anomaly Not Reportable 11/25/16 05:51 Sara Rods Not Reportable 11/25/16 05:51 Platelet Estimate Appears normal 11/25/16 05:51 Clumped Platelets Not Reportable 11/25/16 05:51 Plt Clumps, EDTA Not Reportable 11/25/16 05:51 Large Platelets Not Reportable 11/25/16 05:51 Giant Platelets Not Reportable 11/25/16 05:51 Platelet Satelliting Not Reportable 11/25/16 05:51 Plt Morphology Comment Not Reportable 11/25/16 05:51 RBC Morphology Not Reportable 11/25/16 05:51 Dimorphic RBCs Not Reportable 11/25/16 05:51 Polychromasia Not Reportable 11/25/16 05:51 Hypochromasia Not Reportable 11/25/16 05:51 Poikilocytosis Not Reportable 11/25/16 05:51 Anisocytosis Few 11/25/16 05:51 Microcytosis Not Reportable 11/25/16 05:51 Macrocytosis Not Reportable 11/25/16 05:51 Spherocytes Not Reportable 11/25/16 05:51 Pappenheimer Bodies Not Reportable 11/25/16 05:51 Sickle Cells Not Reportable 11/25/16 05:51 Target Cells Not Reportable 11/25/16 05:51 Tear Drop Cells Not Reportable 11/25/16 05:51 Ovalocytes Not Reportable 11/25/16 05:51 Helmet Cells Not Reportable 11/25/16 05:51 Swanson-Ethete Bodies Not Reportable 11/25/16 05:51 [place] Rings Not Reportable 11/25/16 05:51 Dairy Cells Not Reportable 11/25/16 05:51 Bite Cells Not Reportable 11/25/16 05:51 Crenated Cell Not Reportable 11/25/16 05:51 Elliptocytes Not Reportable 11/25/16 05:51 Acanthocytes (Spur) Not Reportable 11/25/16 05:51 Rouleaux Not Reportable 11/25/16 05:51 Hemoglobin C Crystals Not Reportable 11/25/16 05:51 Schistocytes Not Reportable 11/25/16 05:51 Malaria parasites Not Reportable 11/25/16 05:51 Roger Bodies Not Reportable 11/25/16 05:51 Hem Pathologist Commnt No 11/25/16 05:51 PT 13.8 Sec. (12.2-14.9) 11/23/16 21:50 INR 1.07 (0.87-1.13) 11/23/16 21:50 APTT 33.2 Sec. (24.2-36.6) 11/23/16 21:50 Thrombin Time 15.2 Sec. (15.1-19.6) 11/23/16 21:50 Sodium 145 mmol/L (137-145) 11/27/16 11:13 Potassium 3.2 mmol/L (3.6-5.0) L 11/27/16 11:13 Chloride 107.6 mmol/L (98-107) H 11/27/16 11:13 Carbon Dioxide 23 mmol/L (22-30) 11/27/16 11:13 Anion Gap 18 mmol/L 11/27/16 11:13 BUN 27 mg/dL (9-20) H 11/27/16 11:13 Creatinine 1.6 mg/dL (0.8-1.5) H 11/27/16 11:13 Estimated GFR 52 ml/min 11/27/16 11:13 BUN/Creatinine Ratio 16.87 % 11/27/16 11:13 Glucose 220 mg/dL (75-100) H 11/27/16 11:13 POC Glucose 136 (70-105) H 11/27/16 16:36 Calcium 8.7 mg/dL (8.4-10.2) 11/27/16 11:13 Total Bilirubin 0.60 mg/dL (0.1-1.2) 11/27/16 11:13 AST 23 units/L (5-40) 11/27/16 11:13 ALT 23 units/L (7-56) 11/27/16 11:13 Alkaline Phosphatase 55 units/L (35-129) 11/27/16 11:13 Total Creatine Kinase 228 units/L (55-170) H 11/24/16 04:07 CK-MB (CK-2) 1.7 ng/mL (0.0-4.0) 11/24/16 04:07 CK-MB (CK-2) Rel Index 0.7 (0-4) 11/24/16 04:07 Troponin T < 0.010 ng/mL (0.00-0.029) 11/24/16 04:07 Total Protein 6.6 g/dL (6.3-8.2) 11/27/16 11:13 Albumin 3.2 g/dL (3.9-5) L 11/27/16 11:13 Albumin/Globulin Ratio 0.9 % 11/27/16 11:13 Triglycerides 69 mg/dL (2-149) 11/24/16 03:49 Cholesterol 144 mg/dL (50-199) 11/24/16 03:49 LDL Cholesterol Direct 67 mg/dL (50-130) 11/24/16 03:49 HDL Cholesterol 64 mg/dL (40-59) H 11/24/16 03:49 Cholesterol/HDL Ratio 2.25 % 11/24/16 03:49 Urine Color Yellow (Yellow) 11/24/16 00:44 Urine Turbidity Clear (Clear) 11/24/16 00:44 Urine pH 6.0 (5.0-7.0) 11/24/16 00:44 Ur Specific [place] 1.012 (1.003-1.030) 11/24/16 00:44 Urine Protein 100 mg/dl mg/dL (Negative) 11/24/16 00:44 Urine Glucose (UA) 150 mg/dL (Negative) 11/24/16 00:44 Urine Ketones Neg mg/dL (Negative) 11/24/16 00:44 Urine Blood Mod (Negative) 11/24/16 00:44 Urine Nitrite Neg (Negative) 11/24/16 00:44 Urine Bilirubin Neg (Negative) 11/24/16 00:44 Urine Urobilinogen < 2.0 mg/dL (<2.0) 11/24/16 00:44 Ur Leukocyte Esterase Sm (Negative) 11/24/16 00:44 Urine WBC (Auto) 16.0 /HPF (0.0-6.0) H 11/24/16 00:44 Urine RBC (Auto) 89.0 /HPF (0.0-6.0) 11/24/16 00:44 U Epithel Cells (Auto) < 1.0 /HPF (0-13.0) 11/24/16 00:44 Hyaline Casts 1 /LPF 11/24/16 00:44
--- NOTE | 2016-11-27 08:54 | Progress Note ---
Assessment and Plan - Patient Problems (1) HIWOT (acute kidney injury) Current Visit: Yes Status: Acute Plan to address problem: HIWOT is likely hemodynamically mediated. Renal function is better. Likely CKD stage 3. Monitor renal function. (2) HTN (hypertension) Current Visit: Yes Status: Suspected Qualifiers: Hypertension type: essential hypertension Qualified Code(s): I10 - Essential (primary) hypertension Plan to address problem: Increase Clonidine. Stop IV fluids. (3) Hypokalemia Current Visit: Yes Status: Acute Plan to address problem: Replete K. 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 Objective - Vital Signs Vital signs: Vital Signs - 12hr 11/26/16 11/27/16 11/27/16 22:00 00:47 05:54 Temperature 97.6 F 98.1 F Pulse Rate 65 74 Pulse Rate [ 80 Left Radial] Respiratory 20 20 20 Rate Blood Pressure 164/90 200/121 O2 Sat by Pulse 98 100 Oximetry 11/27/16 11/27/16 06:19 08:38 Temperature 98.3 F Pulse Rate 74 75 Pulse Rate [ Left Radial] Respiratory 18 Rate Blood Pressure 200/121 163/76 O2 Sat by Pulse 98 Oximetry - General Appearance General appearance: well-developed, well-nourished, appears stated age, other ( no distress) EENT: ATNC, PERRL, mucous membranes moist Neck: supple Respiratory: Present: Clear to Ascultation Cardiology: regular, S1S2, no murmurs Gastrointestinal: normoactive bowel sounds, no tenderness, no distended Integumentary: no rash Neurologic: alert and oriented x3, other (minimal right sided weakness noted) Musculoskeletal: other (no edema) Psychiatric: mood/affect appropriate, cooperative - Lab 11/26/16 06:58 11/27/16 06:58 Most recent lab results Calcium 8.8 mg/dL (8.4-10.2) 11/27/16 06:58
[2016-11-27] MEDS: NOVOLOG SUB-Q SCH ×4 (08:58→22:09)
[2016-11-27] MEDS: LOVENOX SUB-Q SCH (08:59)
[2016-11-27] MEDS: PLAVIX PO SCH (09:00)
[2016-11-27] MEDS: HCTZ PO SCH (09:00)
[2016-11-27] MEDS: LOPRESSOR PO SCH ×2 (09:02→22:09)
[2016-11-27] MEDS: K-DUR PO SCH (09:03)
[2016-11-27] MEDS: LEVEMIR SUB-Q SCH (09:06)
[2016-11-27] MEDS ORDERED: CATAPRES PO SCH ×2 (10:00)
[2016-11-27] MEDS ORDERED: K-DUR PO NR (10:00)
[2016-11-27] MEDS: CATAPRES PO SCH ×2 (10:10→22:08)
[2016-11-27 11:58] LABS: Basophils % (Auto) 0.5 % (0.0-1.8); Hemoglobin 14.6 gm/dl (11.8-15.2); Mean Corpuscular HGB Conc 35 % (32-34); Mean Corpuscular Hemoglobin 31 pg (28-32); Mean Corpuscular Volume 89 fl (84-94); Platelet Count 218 K/mm3 (140-440); Red Blood Count 4.74 M/mm3 (3.65-5.03); Red Cell Distribution Width 14.1 % (13.2-15.2); White Blood Count 8.4 K/mm3 (4.5-11.0)
[2016-11-27 12:18] LABS: Albumin 3.2 g/dL (3.9-5); Albumin/Globulin Ratio 0.9 %; BUN/Creatinine Ratio 16.87; Bilirubin,Total 0.6 mg/dL (0.1-1.2); Calcium 8.7 mg/dL (8.4-10.2); Chloride 107.6 mmol/L (98-107); Potassium 3.2 mmol/L (3.6-5.0); Total Protein 6.6 g/dL (6.3-8.2)
[2016-11-27] MEDS: LEVAQUIN PO SCH (12:22)
--- NOTE | 2016-11-27 13:16 | Consultation ---
History of Present Illness - Reason for Consult Consult date: 11/27/16 stroke - History of Present Illness I have dictated a full note on the patient and he clearly has had a stroke ischemic type small vessel disease advisse statin asa and HTN management he will need walker full note dictated Thanks Past History Past Medical History: diabetes, hypertension, stroke Medications and Allergies Allergies Allergy/AdvReac Type Severity Reaction Status Date / Time No Known Allergies Allergy Verified 11/23/16 22:00 Home Medications Medication Instructions Recorded Confirmed Last Taken Type Clonidine 0.1 mg PO DAILY 11/23/16 11/23/16 Unknown History Clopidogrel 75 mg PO DAILY 11/23/16 11/23/16 Unknown History Hydrochlorothiazide 25 mg PO QA 11/23/16 11/23/16 Unknown History K-Dur 20 mg PO DAILY 11/23/16 11/23/16 Unknown History Levemir Flextouch 30 units SC [facility] [place] 11/23/16 11/23/16 Unknown History Lisinopril 40 mg PO QA 11/23/16 11/23/16 Unknown History Metoprolol Tartrate 50 mg PO QA 11/23/16 11/23/16 Unknown History NovoLIN 70/30 20 units SC [facility] [place] 11/23/16 11/23/16 Unknown History Simvastatin 20 mg PO DAILY 11/23/16 11/23/16 Unknown History Active Meds: Active Medications Acetaminophen (Tylenol) 650 mg PO Q4H PRN PRN Reason: Pain, Mild (1-3) Last Admin: 11/24/16 17:10 Dose: 650 mg Bisacodyl (Dulcolax) 10 mg AR QDAY PRN PRN Reason: Constipation Clonidine HCl (Catapres) 0.2 mg PO Q12HR [facility] Last Admin: 11/27/16 10:10 Dose: 0.2 mg Clopidogrel Bisulfate (Plavix) 75 mg PO DAILY [facility] Last Admin: 11/27/16 09:00 Dose: 75 mg Dextrose (D50w (25gm)) 50 ml IV PRN PRN PRN Reason: Hypoglycemia Enoxaparin Sodium (Lovenox) 40 mg SUB-Q QDAY@1000 [facility] Last Admin: 11/27/16 08:59 Dose: 40 mg Hydralazine HCl (Apresoline) 5 mg IV Q6H PRN PRN Reason: Hypertension Last Admin: 11/27/16 06:19 Dose: 5 mg Hydrochlorothiazide (Hctz) 12.5 mg PO QAM [facility] Last Admin: 11/27/16 09:00 Dose: 12.5 mg Insulin Aspart (Novolog) 0 units SUB-Q ACHS [facility] PRN Reason: Protocol Last Admin: 11/27/16 12:34 Dose: 3 units Insulin Detemir (Levemir) [facility] Last Admin: 11/27/16 09:06 Dose: 30 units Insulin Human Isoph/Insulin Regular (Novolin 70/30) 20 unit SUB-Q [facility] Last Admin: 11/27/16 09:05 Dose: 20 unit Levofloxacin (Levaquin) 250 mg PO Q24HR [facility] Last Admin: 11/27/16 12:22 Dose: 250 mg Magnesium Hydroxide (Milk Of Magnesia) 30 ml PO Q4H PRN PRN Reason: Constipation Metoprolol Tartrate (Lopressor) 50 mg PO BID [facility] Last Admin: 11/27/16 09:02 Dose: 50 mg Ondansetron HCl (Zofran) 4 mg IV Q8H PRN PRN Reason: N/V unrelieved by Angélica Last Admin: 11/27/16 06:20 Dose: 4 mg Potassium Chloride (K-Dur) 10 meq PO QDAY [facility] Last Admin: 11/27/16 09:03 Dose: 10 meq Simvastatin (Zocor) 20 mg PO QHS [facility] Last Admin: 11/26/16 22:42 Dose: 20 mg Sodium Chloride (Sodium Chloride Flush Syringe 10 Ml) 10 ml IV PRN PRN PRN Reason: LINE FLUSH Exam - Constitutional Vitals: Temp Pulse Resp BP Pulse Ox 98.3 F 75 18 163/76 98 11/27/16 08:38 11/27/16 09:02 11/27/16 08:38 11/27/16 10:10 11/27/16 08:38 Results - Labs CBC & Chem 7: 11/27/16 11:13 11/27/16 11:13 Labs: Abnormal lab results 11/26/16 11/26/16 11/27/16 Range/Units 16:59 21:59 06:58 MCHC (32-34) % [place] % (Auto) (0.0-7.3) % [place] # (0.0-0.8) K/mm3 Potassium 3.4 L (3.6-5.0) mmol/L Chloride (98-107) mmol/L Carbon Dioxide 20 L (22-30) mmol/L BUN 25 H (9-20) mg/dL Creatinine 1.6 H (0.8-1.5) mg/dL Glucose 147 H (75-100) mg/dL POC Glucose 179 H 115 H (70-105) Albumin (3.9-5) g/dL 11/27/16 11/27/16 11/27/16 Range/Units 08:34 11:13 11:13 MCHC 35 H (32-34) % [place] % (Auto) 14.3 H (0.0-7.3) % [place] # 1.2 H (0.0-0.8) K/mm3 Potassium 3.2 L (3.6-5.0) mmol/L Chloride 107.6 H (98-107) mmol/L Carbon Dioxide (22-30) mmol/L BUN 27 H (9-20) mg/dL Creatinine 1.6 H (0.8-1.5) mg/dL Glucose 220 H (75-100) mg/dL POC Glucose 152 H (70-105) Albumin 3.2 L (3.9-5) g/dL
[2016-11-27] MEDS ORDERED: APRESOLINE IV PRN (19:11)
[2016-11-27] MEDS: ZOCOR PO SCH (22:08)
--- NOTE | 2016-11-28 01:52 | Consultation ---
HISTORY OF PRESENT ILLNESS: This is a 71-year-old black male, known diabetic, who presents to [facility] with acute onset of weakness, not acting like himself. The patient has previously managed with insulin. His blood sugars were reportedly very high. He is brought to the hospital by his . He was staggering, could not control his limb movements, was not acting like himself, had trouble with his memory and orientation and had some trouble with weakness of his left arm and left face as well as a slight trouble swallowing. This is a new onset of these symptoms. He denied any falls, loss of consciousness or seizures. The patient has no loss of consciousness. He was admitted and subsequently has had a diagnostic workup. I reviewed his CT scan of the head, which shows a pontine infarct as does the MRI. This is a new finding. Laboratory data showed evidence of diabetes. ALLERGIES: He has no known allergies. SOCIAL HISTORY: Denies smoking, denies drinking. He is . PHYSICAL EXAMINATION: VITAL SIGNS: Showed his blood pressure was markedly elevated at 200/121, temperature was 100.1, respirations are 20, pulse rate is 74. His mean blood pressure at this point is 147. NEUROLOGIC: He has full ocular movements and slight degree of left facial weakness of the central type. 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 He swallows well. He is eating his lunch at present time. He has movement of all extremities. No drift to extremities is noted. Sensory examination is unremarkable. He has slight degree of dysarthria. This may be lying . I do not believe his [place] language is [place]. The patient does not have tremors, does not have asterixis. No parkinsonian features are noted. He does have some degree of masked facies, which may be related to the pontine stroke. IMPRESSION: Acute pontine stroke related to marked elevation of blood pressure. His blood pressure should be better regulated. I would recommend medical therapy, statin, low dose aspirin and blood pressure treatment. The patient will require physical therapy, use of ambulation walker's probably recommended at this point as he is very ataxic. JOB# [id number] JULIANNA/NTS
[2016-11-28 08:32] LABS: BUN/Creatinine Ratio 14.44; Calcium 8.7 mg/dL (8.4-10.2); Chloride 103.8 mmol/L (98-107); Magnesium 1.8 mg/dL (1.7-2.3); Potassium 3.3 mmol/L (3.6-5.0)
--- NOTE | 2016-11-28 08:39 | Progress Note ---
Assessment and Plan - Patient Problems (1) HIWOT (acute kidney injury) Current Visit: Yes Status: Acute Plan to address problem: HIWOT is likely hemodynamically mediated. Renal function is fair. Likely CKD stage 3. Monitor renal function. (2) HTN (hypertension) Current Visit: Yes Status: Suspected Qualifiers: Hypertension type: essential hypertension Qualified Code(s): I10 - Essential (primary) hypertension Plan to address problem: Stop HCTZ. (3) Hypokalemia Current Visit: Yes Status: Acute Plan to address problem: Replete K. 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 Objective - Vital Signs Vital signs: Vital Signs - 12hr 11/27/16 11/28/16 11/28/16 22:00 00:00 04:00 Temperature 98.1 F 97.9 F Pulse Rate 80 62 62 Pulse Rate [ 80 Left Radial] Respiratory 20 18 18 Rate Blood Pressure 142/81 96/58 O2 Sat by Pulse 99 97 Oximetry 11/28/16 07:44 Temperature Pulse Rate 55 L Pulse Rate [ Left Radial] Respiratory Rate Blood Pressure O2 Sat by Pulse Oximetry - General Appearance General appearance: well-developed, well-nourished, appears stated age, other ( no distress) EENT: ATNC, PERRL, hearing intact, vision intact Neck: supple Respiratory: Present: Clear to Ascultation Cardiology: regular, S1S2, no murmurs Gastrointestinal: normoactive bowel sounds Integumentary: no rash Neurologic: no asterixis, other (minimal right sided weakness noted) Musculoskeletal: other (no edema) Psychiatric: mood/affect appropriate, cooperative - Lab 11/27/16 11:13 11/28/16 07:30 Most recent lab results Calcium 8.7 mg/dL (8.4-10.2) 11/28/16 07:30 Magnesium 1.80 mg/dL (1.7-2.3) 11/28/16 07:30
--- NOTE | 2016-11-28 08:50 | Progress Note ---
Hospitalist Physical - Constitutional Vitals: Temp Pulse Resp BP Pulse Ox 97.9 F 55 L 18 96/58 97 11/28/16 04:00 11/28/16 07:44 11/28/16 04:00 11/28/16 04:00 11/28/16 04:00 General appearance: Present: no acute distress, well-nourished Results - Labs CBC & Chem 7: 11/27/16 11:13 11/28/16 07:30 Labs: Laboratory Last Values WBC 8.4 K/mm3 (4.5-11.0) 11/27/16 11:13 RBC 4.74 M/mm3 (3.65-5.03) 11/27/16 11:13 Hgb 14.6 gm/dl (11.8-15.2) 11/27/16 11:13 Hct 42.0 % (35.5-45.6) 11/27/16 11:13 MCV 89 fl (84-94) 11/27/16 11:13 MCH 31 pg (28-32) 11/27/16 11:13 MCHC 35 % (32-34) H 11/27/16 11:13 RDW 14.1 % (13.2-15.2) 11/27/16 11:13 Plt Count 218 K/mm3 (140-440) 11/27/16 11:13 Lymph % (Auto) 15.8 % (13.4-35.0) 11/27/16 11:13 Benson % (Auto) 14.3 % (0.0-7.3) H 11/27/16 11:13 Eos % (Auto) 2.0 % (0.0-4.3) 11/27/16 11:13 Baso % (Auto) 0.5 % (0.0-1.8) 11/27/16 11:13 Lymph # 1.3 K/mm3 (1.2-5.4) 11/27/16 11:13 Benson # 1.2 K/mm3 (0.0-0.8) H 11/27/16 11:13 Eos # 0.2 K/mm3 (0.0-0.4) 11/27/16 11:13 Baso # 0.0 K/mm3 (0.0-0.1) 11/27/16 11:13 Add Manual Diff Complete 11/25/16 05:51 Total Counted 100 11/25/16 05:51 Seg Neutrophils % 67.4 % (40.0-70.0) 11/27/16 11:13 Seg Neuts % (Manual) 82.0 % (40.0-70.0) H 11/25/16 05:51 Band Neutrophils % 0 % 11/25/16 05:51 Lymphocytes % (Manual) 10.0 % (13.4-35.0) L 11/25/16 05:51 Reactive Lymphs % (Man) 0 % 11/25/16 05:51 Monocytes % (Manual) 8.0 % (0.0-7.3) H 11/25/16 05:51 Eosinophils % (Manual) 0 % (0.0-4.3) 11/25/16 05:51 Basophils % (Manual) 0 % (0.0-1.8) 11/25/16 05:51 Metamyelocytes % 0 % 11/25/16 05:51 Myelocytes % 0 % 11/25/16 05:51 Promyelocytes % 0 % 11/25/16 05:51 Blast Cells % 0 % 11/25/16 05:51 Nucleated RBC % Not Reportable 11/25/16 05:51 Seg Neutrophils # 5.7 K/mm3 (1.8-7.7) 11/27/16 11:13 Seg Neutrophils # Man 22.1 K/mm3 (1.8-7.7) H 11/25/16 05:51 Band Neutrophils # 0.0 K/mm3 11/25/16 05:51 Lymphocytes # (Manual) 2.7 K/mm3 (1.2-5.4) 11/25/16 05:51 Abs React Lymphs (Man) 0.0 K/mm3 11/25/16 05:51 Monocytes # (Manual) 2.2 K/mm3 (0.0-0.8) H 11/25/16 05:51 Eosinophils # (Manual) 0.0 K/mm3 (0.0-0.4) 11/25/16 05:51 Basophils # (Manual) 0.0 K/mm3 (0.0-0.1) 11/25/16 05:51 Metamyelocytes # 0.0 K/mm3 11/25/16 05:51 Myelocytes # 0.0 K/mm3 11/25/16 05:51 Promyelocytes # 0.0 K/mm3 11/25/16 05:51 Blast Cells # 0.0 K/mm3 11/25/16 05:51 WBC Morphology Not Reportable 11/25/16 05:51 Hypersegmented Neuts Few 11/25/16 05:51 Hyposegmented Neuts Not Reportable 11/25/16 05:51 Hypogranular Neuts Not Reportable 11/25/16 05:51 Smudge Cells Not Reportable 11/25/16 05:51 Toxic Granulation Not Reportable 11/25/16 05:51 Toxic Vacuolation Rare 11/25/16 05:51 Dohle Bodies Not Reportable 11/25/16 05:51 Pelger-Huet Anomaly Not Reportable 11/25/16 05:51 Sara Rods Not Reportable 11/25/16 05:51 Platelet Estimate Appears normal 11/25/16 05:51 Clumped Platelets Not Reportable 11/25/16 05:51 Plt Clumps, EDTA Not Reportable 11/25/16 05:51 Large Platelets Not Reportable 11/25/16 05:51 Giant Platelets Not Reportable 11/25/16 05:51 Platelet Satelliting Not Reportable 11/25/16 05:51 Plt Morphology Comment Not Reportable 11/25/16 05:51 RBC Morphology Not Reportable 11/25/16 05:51 Dimorphic RBCs Not Reportable 11/25/16 05:51 Polychromasia Not Reportable 11/25/16 05:51 Hypochromasia Not Reportable 11/25/16 05:51 Poikilocytosis Not Reportable 11/25/16 05:51 Anisocytosis Few 11/25/16 05:51 Microcytosis Not Reportable 11/25/16 05:51 Macrocytosis Not Reportable 11/25/16 05:51 Spherocytes Not Reportable 11/25/16 05:51 Pappenheimer Bodies Not Reportable 11/25/16 05:51 Sickle Cells Not Reportable 11/25/16 05:51 Target Cells Not Reportable 11/25/16 05:51 Tear Drop Cells Not Reportable 11/25/16 05:51 Ovalocytes Not Reportable 11/25/16 05:51 Helmet Cells Not Reportable 11/25/16 05:51 Swanson-Brewer Bodies Not Reportable 11/25/16 05:51 Dunbar Rings Not Reportable 11/25/16 05:51 Silvano Cells Not Reportable 11/25/16 05:51 Bite Cells Not Reportable 11/25/16 05:51 Crenated Cell Not Reportable 11/25/16 05:51 Elliptocytes Not Reportable 11/25/16 05:51 Acanthocytes (Spur) Not Reportable 11/25/16 05:51 Rouleaux Not Reportable 11/25/16 05:51 Hemoglobin C Crystals Not Reportable 11/25/16 05:51 Schistocytes Not Reportable 11/25/16 05:51 Malaria parasites Not Reportable 11/25/16 05:51 Roger Bodies Not Reportable 11/25/16 05:51 Hem Pathologist Commnt No 11/25/16 05:51 PT 13.8 Sec. (12.2-14.9) 11/23/16 21:50 INR 1.07 (0.87-1.13) 11/23/16 21:50 APTT 33.2 Sec. (24.2-36.6) 11/23/16 21:50 Thrombin Time 15.2 Sec. (15.1-19.6) 11/23/16 21:50 Sodium 142 mmol/L (137-145) 11/28/16 07:30 Potassium 3.3 mmol/L (3.6-5.0) L 11/28/16 07:30 Chloride 103.8 mmol/L (98-107) 11/28/16 07:30 Carbon Dioxide 23 mmol/L (22-30) 11/28/16 07:30 Anion Gap 19 mmol/L 11/28/16 07:30 BUN 26 mg/dL (9-20) H 11/28/16 07:30 Creatinine 1.8 mg/dL (0.8-1.5) H 11/28/16 07:30 Estimated GFR 45 ml/min 11/28/16 07:30 BUN/Creatinine Ratio 14.44 % 11/28/16 07:30 Glucose 99 mg/dL (75-100) 11/28/16 07:30 POC Glucose 148 (70-105) H 11/27/16 21:36 Calcium 8.7 mg/dL (8.4-10.2) 11/28/16 07:30 Magnesium 1.80 mg/dL (1.7-2.3) 11/28/16 07:30 Total Bilirubin 0.60 mg/dL (0.1-1.2) 11/27/16 11:13 AST 23 units/L (5-40) 11/27/16 11:13 ALT 23 units/L (7-56) 11/27/16 11:13 Alkaline Phosphatase 55 units/L (35-129) 11/27/16 11:13 Total Creatine Kinase 228 units/L (55-170) H 11/24/16 04:07 CK-MB (CK-2) 1.7 ng/mL (0.0-4.0) 11/24/16 04:07 CK-MB (CK-2) Rel Index 0.7 (0-4) 11/24/16 04:07 Troponin T < 0.010 ng/mL (0.00-0.029) 11/24/16 04:07 Total Protein 6.6 g/dL (6.3-8.2) 11/27/16 11:13 Albumin 3.2 g/dL (3.9-5) L 11/27/16 11:13 Albumin/Globulin Ratio 0.9 % 11/27/16 11:13 Triglycerides 69 mg/dL (2-149) 11/24/16 03:49 Cholesterol 144 mg/dL (50-199) 11/24/16 03:49 LDL Cholesterol Direct 67 mg/dL (50-130) 11/24/16 03:49 HDL Cholesterol 64 mg/dL (40-59) H 11/24/16 03:49 Cholesterol/HDL Ratio 2.25 % 11/24/16 03:49 Urine Color Yellow (Yellow) 11/24/16 00:44 Urine Turbidity Clear (Clear) 11/24/16 00:44 Urine pH 6.0 (5.0-7.0) 11/24/16 00:44 Ur Specific Jarrell 1.012 (1.003-1.030) 11/24/16 00:44 Urine Protein 100 mg/dl mg/dL (Negative) 11/24/16 00:44 Urine Glucose (UA) 150 mg/dL (Negative) 11/24/16 00:44 Urine Ketones Neg mg/dL (Negative) 11/24/16 00:44 Urine Blood Mod (Negative) 11/24/16 00:44 Urine Nitrite Neg (Negative) 11/24/16 00:44 Urine Bilirubin Neg (Negative) 11/24/16 00:44 Urine Urobilinogen < 2.0 mg/dL (<2.0) 11/24/16 00:44 Ur Leukocyte Esterase Sm (Negative) 11/24/16 00:44 Urine WBC (Auto) 16.0 /HPF (0.0-6.0) H 11/24/16 00:44 Urine RBC (Auto) 89.0 /HPF (0.0-6.0) 11/24/16 00:44 U Epithel Cells (Auto) < 1.0 /HPF (0-13.0) 11/24/16 00:44 Hyaline Casts 1 /LPF 11/24/16 00:44
[2016-11-28] MEDS ORDERED: K-DUR PO SCH ×2 (09:00→10:00)
--- NOTE | 2016-11-28 10:55 | Discharge Summary ---
<LAZCLEM CRUZ - Last Filed: 11/29/16 09:11> Providers - Providers Date of Admission: 11/23/16 23:51 Date of discharge: 11/28/16 Attending physician: ARJUN LYNN 11/24/16 02:56 Consult to Physician [CONS] Routine Consulting Provider: KELSEY VYAS Reason For Exam: cva Notified:: secretary office clerk pl call 11/26/16 10:59 Consult to Physician [CONS] Routine Consulting Provider: AXEL PICKERING Reason For Exam: Acute renal failure Place consult to:: yes Notified:: yes Phone number called:: yes If yes, spoke with:: Dr Pickering 11/26/16 12:57 Speech Therapy Evaluation and Treat [CONS] Urgent Reason For Exam: stroke Primary care physician: OUTREACH PROFESSIONAL Hospitalization Condition: Fair Hospital course: This is a 71-year-old man with a history of hypertension, diabetes, CVA with right-sided weakness comes emergency room today because he felt that his right side was weaker than normal. Patient diagnosed with CVA, SIRS, Acute kidney injury, Diabetes mellitus, hypertension and hyperlipidemia.CT of the brain shows chronic small vessel white matter ischemic changes. MRI of the brain shows left pontine infarct and chronic small vessel is white matter ischemic changes. Carotid artery Doppler shows no hemodynamically significant stenosis.No TPA was administered as he was outside the window, Patient has right upper extremity weakness. Patient urine culture positive for Klebsiella pneumoniae. He was treated with antihypertensive, antlipid, blood thinners, IV fluid, IV antibiotic along Physical and occupational therapy. Patient completed a full course of antibiotic. He is being discharged on oral antibiotic. Patient cleared by nephrology. Patient clinically improved and stable for discharge. Patient was advised to follow up with her primary care. Diagnosed: CVA SIRS Acute kidney injury Diabetes mellitus Hypertension Hyperlipidemia. Disposition: DC-01 TO HOME OR SELFCARE Time spent for discharge: 33 minutes Core Measure Documentation - Palliative Care Palliative Care/ Comfort Measures: Not Applicable - Core Measures Any of the following diagnoses?: none Exam - Constitutional Vitals: Temp Pulse Resp BP Pulse Ox 97.2 F L 57 L 18 190/96 97 11/28/16 08:00 11/28/16 08:00 11/28/16 08:00 11/28/16 08:00 11/28/16 04:00 General appearance: Present: no acute distress - EENT Eyes: Present: PERRL ENT: hearing intact - Neck Neck: Present: supple - Respiratory Respiratory effort: normal Respiratory: bilateral: CTA - Cardiovascular Rhythm: regular Heart Sounds: Present: S1 & S2 - Extremities Extremities: no ischemia Extremity abnormal: other (Right extremity weakness. ) Peripheral Pulses: within normal limits - Abdominal General gastrointestinal: Present: soft, non-tender Male genitourinary: Present: deferred - Rectal Rectal Exam: deferred - Integumentary Integumentary: Present: clear, warm, dry - Musculoskeletal Musculoskeletal: strength equal bilaterally - Psychiatric Psychiatric: appropriate mood/affect - Neurologic Neurologic: CNII-XII intact - Allied Health Allied health notes reviewed: nursing Plan Activity: fall precautions Diet: low fat, low cholesterol, low salt Durable Medical Equipment Needed Upon Discharge: Walker-Standard Follow up with: PRIMARY CARE, [Primary Care Provider] - 7 Days Prescriptions: Levofloxacin [Levaquin] 250 mg PO QDAY #10 tablet <ARJUN LYNN - Last Filed: 11/30/16 17:48> Providers - Providers Date of Admission: 11/23/16 23:51 Attending physician: ARJUN LYNN 11/24/16 02:56 Consult to Physician [CONS] Routine Consulting Provider: KELSEY VYAS Reason For Exam: cva Notified:: secretary office clerk pl call 11/26/16 10:59 Consult to Physician [CONS] Routine Consulting Provider: AXEL PICKERING Reason For Exam: Acute renal failure Place consult to:: yes Notified:: yes Phone number called:: yes If yes, spoke with:: Dr Pickering 11/26/16 12:57 Speech Therapy Evaluation and Treat [CONS] Urgent Reason For Exam: stroke Primary care physician: OUTREACH PROFESSIONAL Hospitalization Reason for admission: right-sided weakness Hospital course: I saw and evaluated the patient. I agree with the findings and the plan of care as documented in the Nurse Practitioner's~note, with the following corrections and additions. I saw and evaluated the patient. I agree with the findings and the plan of care as documented in the Nurse Practitioner's~note, with the following corrections and additions. Patient's cultures reviewed, oral Levaquin advised for 10 days renal dose Agree with the above management Exam - Constitutional Vitals: Temp Pulse Resp BP Pulse Ox 98.3 F 62 18 172/100 96 11/28/16 12:00 11/28/16 12:00 11/28/16 12:00 11/28/16 12:00 11/28/16 12:00
[2016-11-28] MEDS: PLAVIX PO SCH (11:45)
[2016-11-28] MEDS: HCTZ PO SCH (11:45)
[2016-11-28] MEDS: K-DUR PO SCH (11:46)
[2016-11-28] MEDS: LEVAQUIN PO SCH (11:46)
[2016-11-28] MEDS: LOPRESSOR PO SCH (11:46)
[2016-11-28] MEDS: CATAPRES PO SCH (11:46)
[2016-11-28] MEDS: LOVENOX SUB-Q SCH (11:48)
[2016-11-28] MEDS: NOVOLOG SUB-Q SCH ×2 (13:28→13:29)
[2016-11-28] MEDS: LEVEMIR SUB-Q SCH (13:28)
[2016-11-28 18:02] VITALS: BP 176/99
--- NOTE | 2016-11-30 10:21 | Vascular Lab Report ---
CAROTID DUPLEX STUDY: RIGHT PSVEDV CCA PROX: 9511 CCA DIST: 6613 ICA PROX: 4812 ICA MID: 6720 ICA DIST: 81 5 ECA: 1335 VERT: 45 5 LEFT PSVEDV CCA PROX:94788 CCA DIST: 8515 ICA PROX: 7619 ICA MID: 7821 ICA DIST: 5813 ECA: 127 VERT: 58 12 REASON FOR EXAM: Stroke. COMMENTS ON THE RIGHT: Doppler frequency analysis is consistent with 16 to 49 percent diameter reduction of the internal carotid artery. Minimal amount of plaque is seen. The common carotid artery is patent. The external carotid artery is patent. The vertebral artery has antegrade flow. COMMENTS ON THE LEFT: Doppler frequency analysis is consistent with 16 to 49 percent diameter reduction of the internal carotid artery. Minimal amount of plaque is seen. The common carotid artery is patent. The external carotid artery is patent. The vertebral artery has antegrade flow. IMPRESSION: Less than 50% diameter reduction in the internal carotid arteries bilaterally. Consider repeat carotid artery duplex in 12 months.
== END 2016-11-28 20:14 | disposition home or self-care (01) | DRG 64 ==
LOC: ED 21:54 → 4A 23:51
PROVIDERS: ADMIT Internal Medicine; ATTEND Internal Medicine
DX: I63.9 Cerebral infarction, unspecified (principal); N17.0 Acute kidney failure with tubular necrosis; G81.91 Hemiplegia, unspecified affecting right dominant side; R65.10 Systemic inflammatory response syndrome (SIRS) of non-infectious origin without acute organ dysfunction; E78.5 Hyperlipidemia, unspecified; I12.9 Hypertensive chronic kidney disease with stage 1 through stage 4 chronic kidney disease, or unspecified chronic kidney disease; E11.22 Type 2 diabetes mellitus with diabetic chronic kidney disease; N18.9 Chronic kidney disease, unspecified; E87.6 Hypokalemia; Z79.4 Long term (current) use of insulin; Z82.49 Family history of ischemic heart disease and other diseases of the circulatory system
CPT/HCPCS: 36415; 70450; 70551; 71010; 74176; 80048; 80053; 80061; 81001; 82550; 82553; 82962; 83735; 84484; 85007; 85025; 85610; 85670; 85730; 87040; 87076; 87086; 87186; 93005; 93010; 93306; 93880; G8978-GP; G8979-GP; G8980-GP; G8987-GO; G8988-GO; G8989-GO; G8996-GN; G8997-GN; J0360; J0696; J1650; J1815; J1818; J1956; J2405; J7030

== ENCOUNTER 2020-08-24 03:54 | Emergency (ER) | payer MEDICARE ==
[2020-08-24 07:16] LABS: Bacteria,Urine 1+ /HPF (Negative); Bilirubin,Urine NEG (Negative); Blood,Urine LG (Negative); Color,Urine Straw (Yellow); Urobilinogen,Urine < 2.0 mg/dL (<2.0); WBC,Urine < 1.0 /HPF (0.0-6.0)
--- NOTE | 2020-08-24 10:30 | Emergency Department Report ---
ED Male HPI - General Chief complaint: Urogenital-Male Stated complaint: BLOOD IN URINE/PAIN Time Seen by Provider: 08/24/20 10:19 Source: patient, family Mode of arrival: Wheelchair Limitations: No Limitations - History of Present Illness Initial comments: 75-year-old male, history of CVA, presents to ED with complaint of hematuria. Patient states he noticed blood in his urine at 10 PM. Patient denies any abdominal pain, fever, difficulty urinating. Patient states he also had an episode of hematuria 1 day last week. Today, patient states when he gave a urine sample for us to send off, his urine did not appear bloody. Complaint: other (Hematuria) -: Last night Severity: mild Quality: other (Painless) Consistency: intermittent, now resolved Improves with: none Worsens with: none denies: urinary retention, fever, nausea/vomiting - Related Data Home Medications Medication Instructions Recorded Confirmed Last Taken Clonidine 0.1 mg PO DAILY 11/23/16 11/23/16 Unknown Clopidogrel 75 mg PO DAILY 11/23/16 11/23/16 Unknown Hydrochlorothiazide 25 mg PO QAM 11/23/16 11/23/16 Unknown K-Dur 20 mg PO DAILY 11/23/16 11/23/16 Unknown Levemir Flextouch 30 units SC QA 11/23/16 11/23/16 Unknown Lisinopril 40 mg PO QA 11/23/16 11/23/16 Unknown Metoprolol Tartrate 50 mg PO QAM 11/23/16 11/23/16 Unknown NovoLIN 70/30 20 units SC QA 11/23/16 11/23/16 Unknown Simvastatin 20 mg PO DAILY 11/23/16 11/23/16 Unknown Previous Rx's Medication Instructions Recorded Last Taken Type levoFLOXacin [Levaquin] 250 mg PO QDAY #10 tablet 11/28/16 Unknown Rx Allergies Allergy/AdvReac Type Severity Reaction Status Date / Time No Known Allergies Allergy Verified 11/23/16 22:00 ED Review of Systems ROS: Stated complaint: BLOOD IN URINE/PAIN Other details as noted in HPI Comment: All other systems reviewed and negative Constitutional: denies: chills, fever Gastrointestinal: denies: abdominal pain, vomiting Genitourinary: hematuria, other (Denies difficulty urinating). denies: dysuria, frequency ED Past Medical Hx - Past Medical History Hx Hypertension: Yes Hx CVA: Yes (December 2014) Hx Diabetes: Yes Hx of Cancer: Yes (prostate) - Social History Smoking Status: Never Smoker Substance Use Type: None - Medications Home Medications: Home Medications Medication Instructions Recorded Confirmed Last Taken Type Clonidine 0.1 mg PO DAILY 11/23/16 11/23/16 Unknown History Clopidogrel 75 mg PO DAILY 11/23/16 11/23/16 Unknown History Hydrochlorothiazide 25 mg PO QAM 11/23/16 11/23/16 Unknown History K-Dur 20 mg PO DAILY 11/23/16 11/23/16 Unknown History Levemir Flextouch 30 units SC QAM 11/23/16 11/23/16 Unknown History Lisinopril 40 mg PO QAM 11/23/16 11/23/16 Unknown History Metoprolol Tartrate 50 mg PO QAM 11/23/16 11/23/16 Unknown History NovoLIN 70/30 20 units SC QAM 11/23/16 11/23/16 Unknown History Simvastatin 20 mg PO DAILY 11/23/16 11/23/16 Unknown History levoFLOXacin [Levaquin] 250 mg PO QDAY #10 tablet 11/28/16 Unknown Rx ED Physical Exam - General Limitations: No Limitations General appearance: alert, in no apparent distress - Head Head exam: Present: atraumatic, normocephalic - Eye Eye exam: Present: normal appearance, EOMI - ENT ENT exam: Present: mucous membranes moist - Neck Neck exam: Present: normal inspection - Respiratory Respiratory exam: Present: normal lung sounds bilaterally. Absent: respiratory distress - Cardiovascular Cardiovascular Exam: Present: regular rate, normal rhythm - GI/Abdominal GI/Abdominal exam: Present: soft. Absent: distended, tenderness - Extremities Exam Extremities exam: Present: normal inspection - Neurological Exam Neurological exam: Present: alert, oriented X3, motor sensory deficit (Baseline right-sided weakness from prior CVA) - Psychiatric Psychiatric exam: Present: normal affect, normal mood - Skin Skin exam: Present: warm, dry, intact, normal color ED Course Vital Signs 08/24/20 08/24/20 04:57 10:39 Temperature 98.5 F Pulse Rate 75 65 Respiratory 18 18 Rate Blood Pressure 168/92 Blood Pressure 152/80 [Left] O2 Sat by Pulse 100 98 Oximetry ED Medical Decision Making - Medical Decision Making 75-year-old male, history of CVA, presents to ED with complaint of hematuria. Patient states he noticed blood in his urine at 10 PM. Patient denies any abdominal pain, fever, difficulty urinating. Patient states he also had an episode of hematuria 1 day last week. Today, patient states when he gave a urine sample for us to send off, his urine did not appear bloody. UA is negative for UTI or hematuria. Abdomen is soft, nontender. Vital signs are stable. Patient seems to be having intermittent episodes of hematuria. He is advised to follow-up with urology on an outpatient basis. Return precautions given. - Differential Diagnosis Malignancy, UTI, BPH Critical care attestation.: If time is entered above; I have spent that time in minutes in the direct care of this critically ill patient, excluding procedure time. ED Disposition Clinical Impression: History of hematuria Disposition: DC-01 TO HOME OR SELFCARE Is pt being admited?: No Condition: Stable Instructions: Hematuria, Adult Referrals: NASIM CALDERON MD [Primary Care Provider] - 3-5 Days WAQAR PATTERSON MD [Staff Physician] - 3-5 Days Forms: Accompanied Note Time of Disposition: 10:30
[2020-08-24 10:39] VITALS: BP 152/80
== END 2020-08-24 11:15 | disposition home or self-care (01) ==
LOC: ED 03:54
DX: R31.9 Hematuria, unspecified (principal); I10 Essential (primary) hypertension; E11.9 Type 2 diabetes mellitus without complications; Z79.899 Other long term (current) drug therapy; Z86.73 Personal history of transient ischemic attack (TIA), and cerebral infarction without residual deficits
CPT/HCPCS: 81001